=== PATIENT | female | born 1965 | race Caucasian/White ===

== ENCOUNTER 2021-02-14 13:48 | Emergency (ER) | payer SELFPAY ==
[2021-02-14] VITALS (8 sets, daily range): BP systolic 129–136; BP diastolic 89–111; PULSE 62–82; RESP 12–20; TEMP 36.6; O2SAT 96–99
--- NOTE | ~2021-02-14 | XR_ITS ---
EXAMINATION: XR chest 2V DATE: 02/14/2021 14:20 INDICATION: Chest and epigastric pain. TECHNIQUE: PA and lateral views of the chest were obtained. COMPARISON: None FINDINGS: Hyperexpansion of lungs with increased lucency and architectural distortion at the upper lung zones s uggestive of emphysema. Mild biapical pleural-parenchymal scarring. Additional mild opacities likely representing additional atelectasis/scarring along side a couple small calcified granulomata at the l eft costophrenic angle. No other airspace opacities, pulmonary edema, pleural effusion or pneumothora x. The cardiomediastinal silhouette is normal. Thoracic dextroscoliosis with mild spondylosis. Plate and screw fixation at an old proximal left humeral fracture. IMPRESSION: 1. Appearance suggestive but not diagnostic of emphysema. No acute cardiopulmonary disease. Reviewed, dictated and finalized at location A. IMPRESSION: 1. Appearance suggestive but not diagnostic of emphysema. No acute cardiopulmon nasim disease.
--- NOTE | 2021-02-14 13:53 | ECG_ITS ---
Measurements Intervals [place] Rate: 78 P: 69 AL: 144 QRS: 42 QRSD: 93 T: 66 QT: 361 QTc: 413 Interpretive Statements SINUS RHYTHM INCOMPLETE RIGHT BUNDLE BRANCH BLOCK BASELINE ARTIFACT- I, II, III, AVR, AVL BORDERLINE ECG Electronically Signed On 02-14-2021 14:09:18 CDT by Don Sewell D.O.
[2021-02-14 14:13] LABS: Basophils Absolute Auto 0.1 K/mm3 (0.0-0.1); Basophils Percent Auto 0.8 % (0.2-1.2); Eosinophils Absolute Auto 0.2 K/mm3 (0-0.3); Eosinophils Percent Auto 2.1 % (0-4.4); Hematocrit 39.1 % (37.0-47.0); Hemoglobin 12.9 g/dL (12.0-15.0); Immature Granulocyte Absolute 0.03 K/mm3 (0.00-0.031); Immature Granulocyte Percent A 0.4 % (0-0.5); Lymphocytes Absolute Auto 1.97 K/mm3 (0.9-3.2); Lymphocytes Percent Auto 27.2 % (18.3-44.2); Mean Corpuscular Hemoglobin 31.3 pg (26-34); Mean Corpuscular Volume 94.9 fl (80-100); Mean Platelet Volume 9.4 fl (7.4-10.4); Monocytes Absolute Auto 0.5 K/mm3 (0.1-0.6); Neutrophils Absolute Auto 4.5 K/mm3 (1.3-6.7); Neutrophils Percent Auto 62.5 % (45.5-73.1); Platelet Count Result 275 k/mm3 (150-375); Red Blood Count 4.12 M/mm3 (4.2-5.4); Red Cell Distribution Width 12.9 % (11.5-14.5); White Blood Count 7.3 K/mm3 (4.5-10.0)
[2021-02-14 14:24] LABS: INR 0.8; Prothrombin Time 12.1 Seconds (11.1-14.7)
[2021-02-14 14:25] LABS: Partial Thromboplastin Time 27.3 SECONDS (22.3-36.8)
[2021-02-14 14:25] LABS: Anion Gap 3 mmol/L (8-16); Blood Urea Nitrogen 7 mg/dL (7-17); Calcium 8.9 mg/dL (8.4-10.2); Carbon Dioxide 27 mmol/L (22-30); Chloride 104 mmol/L (98-107); Estimated CRCL calculation 52 ml/min; Estimated Glomerular Filt Rate > 60; Glucose 132 mg/dL (65-105); Potassium 4.1 mmol/L (3.4-5.0); Sodium 134 mmol/L (137-145)
[2021-02-14 14:37] LABS: Troponin I < 0.012 ng/mL (0.000-0.034)
--- NOTE | 2021-02-14 15:32 | ED.CHESTPAIN ---
HPI - Chest Pain General Chief Complaint: Chest Pain Stated Complaint: chest pain Time Seen by Provider: 02/14/21 15:18 Source: patient and family Mode of arrival: ambulatory Limitations: no limitations History of Present Illness HPI narrative: Patient is 55 years old white female presents to the ED with chest pain started 3 days ago, constant. Sharp, at the epigastric and right chest, better at rest, worsening with breathing, certain positions and when she laid down on the right side... Patient denies any fever, chills, nausea, vomiting, shortness of breath, coughing or similar symptoms. Patient had a lot of work at the [employer] 1 day prior to the beginning of her symptoms. Patient is a smoker, drinks alcohol daily, does not take medication at home. Patient denies any family history of coronary artery disease. Patient is 42 kg. Related Data Allergies Allergy/AdvReac Type Severity Reaction Status Date / Time No Known Allergies Allergy Unverified 07/26/14 11:26 Review of Systems Review of Systems: Narrative: CONSTITUTIONAL: Denies fever, chills, or sweats. EYES: Denies visual changes, redness, or discharge. ENT: Denies rhinorrhea, congestion, sore throat, or otalgia. CARDIOVASCULAR: Denies chest pain, palpitations, or edema. RESPIRATORY: Denies cough or dyspnea. GASTROINTESTINAL: Denies abdominal pain, nausea, vomiting, or diarrhea. GENITOURINARY: Denies dysuria or hematuria. SKIN: Denies rash or itching. MUSCULOSKELETAL: Denies back pain, joint pain, or myalgia. NEUROLOGIC: Denies headache, numbness, or weakness. PSYCHIATRIC: Denies anxiety or depression. Exam Narrative: Exam Narrative: General appearance: Well-developed, well-nourished Skin: Normal color Head: Normocephalic, nontraumatic Eyes: Clear conjunctiva ENT: Oropharynx normal, ears normal, nose normal Neck: Supple, nontender Chest and respiratory: Airway patent, no respiratory distress, no accessory muscle use Heart: Regular rate/rhythm Abdomen: Soft, nontender, no organomegaly, quiet bowel sounds Vascular: Normal peripheral pulses, normal capillary refill. 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 Musculoskeletal pain is my concern. Labs, chest x-ray, EKG ordered. Further plan to follow Differential Diagnosis Differential diagnosis: Likely pneumothorax, stable angina, atypical chest pain, costochondritis and chest pain Lab Data Result diagrams: 02/14/21 14:04 02/14/21 14:04 Labs: Lab Results 02/14/21 02/14/21 02/14/21 Range/Units 14:03 14:03 14:04 WBC 7.3 (4.5-10.0) K/mm3 RBC 4.12 L (4.2-5.4) M/mm3 Hgb 12.9 (12.0-15.0) g/dL Hct 39.1 (37.0-47.0) % MCV 94.9 (80-100) fl MCH 31.3 (26-34) pg MCHC 33.0 (32-36) g/dl RDW 12.9 (11.5-14.5) % Plt Count 275 (150-375) k/mm3 MPV 9.4 (7.4-10.4) fl Immature Gran % (Auto) 0.4 (0-0.5) % Neut % (Auto) 62.5 (45.5-73.1) % Lymph % (Auto) 2
[2021-02-14] MEDS: KETOROLAC (*BKC) 60 MG/2 ML VIAL IM (15:43)
[2021-02-14 15:50] LABS: Lipase 57 U/L (23-300)
[2021-02-14 17:08] LABS: Troponin I < 0.012 ng/mL (0.000-0.034)
== END 2021-02-14 16:51 | disposition home or self-care (01) ==
PROVIDERS: Emergency Medicine; Emergency Provider Emergency Medicine
DX: R07.89 Other chest pain (principal); I45.10 Unspecified right bundle-branch block; F17.200 Nicotine dependence, unspecified, uncomplicated
CPT/HCPCS: 36415; 71046; 80048; 83690; 84484; 85025; 85610; 85730; 93005; 96372; 99284; J1885

== ENCOUNTER 2021-02-15 16:06 | Inpatient (IN) | payer SELFPAY ==
[2021-02-15] VITALS (10 sets, daily range): BP systolic 167–184; BP diastolic 74–109; PULSE 64–86; RESP 15–20; TEMP 36.2–36.6; O2SAT 97–100; BMI 15.5
--- NOTE | ~2021-02-15 | CT_ITS ---
EXAMINATION: CT abdomen pelvis w con DATE: 02/15/2021 18:15 INDICATION: Right lower quadrant pain TECHNIQUE: Computed tomography (CT) of the abdomen and pelvis was performed with 100 cc Omnipaque 350 intravenous contrast. The dose-length product was 164.85 mGy-cm. Automated exposure control and iter ative reconstruction technique were employed. COMPARISON: None. FINDINGS: Lung bases are unremarkable. Heart size is normal. No significant vascular abnormality. The re is moderate ascites of the abdomen and pelvis. There is free intraperitoneal air in the upper abdo men. Nonobstructive bowel gas pattern. The liver, spleen, pancreas, adrenal glands and kidneys are un remarkable. Gallbladder is present. There is mild subcutaneous edema. Gallbladder is present. No lymp hadenopathy. The appendix is not well visualized to adequately assess for appendicitis. IMPRESSION: 1. Free intraperitoneal air with moderate ascites, suspicious for bowel perforation in the absence of known recent surgery. Recommend surgical consultation. Dr. Juan Manuel Bateman discussed with Dr. Ezio Arzola MD at 02/15/2021 18:23 CDT. Reviewed, dictated and finalized at location A. IMPRESSION: 1. Free intraperitoneal air with moderate ascites, suspicious for bowel perfora tion in the absence of known recent surgery. Recommend surgical consultation. Dr. Juan Manuel Bateman discussed with Dr. Ezio Arzola MD at 02/15/2021 18:23 CDT.
--- NOTE | ~2021-02-15 | XR_ITS ---
EXAMINATION: XR chest 1V portable DATE: 02/17/2021 05:58 INDICATION: Chest congestion. TECHNIQUE: A single frontal view of the chest was obtained. COMPARISON: Chest single view 02/14/2021, CT abdomen and pelvis 02/15/2021 FINDINGS: There is mild atelectasis at left lung base. No pleural effusion or pneumothorax. The heart size is normal. There is plate and screw fixation of left humerus. IMPRESSION: 1. Mild atelectasis at left lung base. Reviewed, dictated and finalized at location A.
[2021-02-15 16:55] LABS: Basophils Absolute Auto 0.1 K/mm3 (0.0-0.1); Basophils Percent Auto 0.6 % (0.2-1.2); Eosinophils Absolute Auto 0.1 K/mm3 (0-0.3); Hematocrit 44.4 % (37.0-47.0); Hemoglobin 14.7 g/dL (12.0-15.0); Immature Granulocyte Absolute 0.03 K/mm3 (0.00-0.031); Immature Granulocyte Percent A 0.4 % (0-0.5); Lymphocytes Absolute Auto 2.36 K/mm3 (0.9-3.2); Lymphocytes Percent Auto 30.1 % (18.3-44.2); Mean Corpuscular HGB Conc 33.1 g/dl (32-36); Mean Corpuscular Hemoglobin 31.5 pg (26-34); Mean Corpuscular Volume 95.3 fl (80-100); Mean Platelet Volume 9.3 fl (7.4-10.4); Monocytes Absolute Auto 0.5 K/mm3 (0.1-0.6); Neutrophils Absolute Auto 4.9 K/mm3 (1.3-6.7); Neutrophils Percent Auto 61.9 % (45.5-73.1); Platelet Count Result 336 k/mm3 (150-375); Red Blood Count 4.66 M/mm3 (4.2-5.4); Red Cell Distribution Width 12.8 % (11.5-14.5); White Blood Count 7.9 K/mm3 (4.5-10.0)
[2021-02-15 17:03] LABS: Alanine Aminotransferase 9 U/L (4-35); Albumin Level 4.4 g/dL (3.5-5.1); Alkaline Phosphatase 76 U/L (38-126); Anion Gap 7 mmol/L (8-16); Aspartate Amino Transferase 21 U/L (14-36); Bilirubin,Total 0.2 mg/dL (0.2-1.3); Blood Urea Nitrogen 8 mg/dL (7-17); Calcium 9.5 mg/dL (8.4-10.2); Carbon Dioxide 25 mmol/L (22-30); Chloride 103 mmol/L (98-107); Estimated CRCL calculation 48 ml/min; Estimated Glomerular Filt Rate > 60; Glucose 119 mg/dL (65-105); Lipase 200 U/L (23-300); Potassium 3.8 mmol/L (3.4-5.0); Sodium 135 mmol/L (137-145)
--- NOTE | 2021-02-15 17:40 | PC.NURSE ---
Attempt x2 for IV unsuccessful per this RN.
--- NOTE | 2021-02-15 17:47 | PC.NURSE ---
After IV start pt began having emesis of what appears to be mucus. Dr. Arzola made aware, orders received.
[2021-02-15] MEDS: SODIUM CHLORIDE 0.9% IV 1,000 ML 999 ML IV CONT (17:48)
[2021-02-15] MEDS: ONDANSETRON INJ 4 MG/2 ML VIAL IV PUSH ×2 (17:59→18:34)
--- NOTE | 2021-02-15 17:59 | PC.NURSE ---
Pt given zofran and then to CT via stretcher.
--- NOTE | 2021-02-15 18:01 | PC.NURSE ---
Report to DEBI Bailey, to continue care.
--- NOTE | 2021-02-15 18:26 | ED.ABDPAIN ---
HPI - Abdominal Pain General Chief Complaint: Abdominal Pain Stated Complaint: lower abd pain Time Seen by Provider: 02/15/21 16:49 Source: patient, family and RN notes reviewed Limitations: no limitations History of Present Illness HPI narrative: Patient is 55 years old white female presented to the ED with lower abdominal pain started 2 hours prior to arrival, gradually radiating all over the abdomen. Associated with nausea and vomiting at least twice. Patient denies any fever, chills, history of abdominal surgery, urinary symptoms, vaginal bleeding or discharge. Patient was seen in our emergency room yesterday for right chest pain started 3 days ago after working in her backyard. Patient was started on naproxen. Patient is a smoker and uses marijuana. Related Data Allergies Allergy/AdvReac Type Severity Reaction Status Date / Time No Known Allergies Allergy Unverified 07/26/14 11:26 Review of Systems Review of Systems: Narrative: CONSTITUTIONAL: Denies fever, chills, or sweats. EYES: Denies visual changes, redness, or discharge. ENT: Denies rhinorrhea, congestion, sore throat, or otalgia. CARDIOVASCULAR: Denies chest pain, palpitations, or edema. RESPIRATORY: Denies cough or dyspnea. GASTROINTESTINAL: Denies abdominal pain, nausea, vomiting, or diarrhea. GENITOURINARY: Denies dysuria or hematuria. SKIN: Denies rash or itching. MUSCULOSKELETAL: Denies back pain, joint pain, or myalgia. NEUROLOGIC: Denies headache, numbness, or weakness. PSYCHIATRIC: Denies anxiety or depression. Exam Narrative: Exam Narrative: General appearance: Underweight, cachectic, at the bedside Skin: Normal color Head: Normocephalic, nontraumatic Eyes: Clear conjunctiva ENT: Oropharynx normal, ears normal, nose normal Neck: Supple, nontender Chest and respiratory: Airway patent, no respiratory distress, no accessory muscle use Heart: Regular rate/rhythm Abdomen: Severe diffuse tenderness, severe guarding and rebound, distention, quiet bowel sounds Vascular: Normal peripheral pulses, normal capillary refill. Musculoskeletal: Normal range of motion, nontender back Neurologic: Alert and oriented ?3, CHANGE COORDINATOR is normal as tested, no gross motor deficit Course Course Emergency Course: Stable Consultations Consultation #1: Dr. Ayoub We will see her soon Date: 02/15/21 Time: 18:47 Vital Signs Vital signs: Vital Signs Temperature 36.6 C 02/15/21 16:41 Pulse Rate 71 02/15/21 16:41 Respiratory Rate 18 02/15/21 16:41 Blood Pressure 178/98 H 02/15/21 16:41 Pulse Oximetry 100 02/15/21 16:41 Temperature 36.6 C 02/15/21 16:41 Pulse Rate 71 02/15/21 16:41 Respiratory Rate 18 02/15/21 16:41 Blood Pressure 178/98 H 02/15/21 16:41 Pulse Oximetry 100 02/15/21 16:41 MDM - Abdominal Pain MDM Narrative Medical decision making narrative: Patient presents with sudden abdominal pain started 2 hours prior to arrival to the emergency room. Labs, IV fluid, CT abdomen pelvis with IV contrast ordered. Further plan to follow. My differential diagnosis as below Differential Diagnosis Differential diagnosis: Likely abdominal pain, acute appendicitis, constipation, diverticulitis and other (Perforated bowel, small bowel obstruction, urinary tract infection) Lab Data Result diagrams: 02/15/21 16:46 02/15/21 16:46 Labs: Lab Results 02/15/21 02/15/21 Range/Units 16:46 16:46 WBC 7.9 (4.5-10.0) K/mm3 RBC 4.66 (4.2-5.4) M/mm3 Hgb 14.7 (12.0-15.0) g/dL Hct 44.4 (37.0-47.0) % MCV 95.3 (80-100) fl MCH 31.5 (26-34) pg MCHC 33.1 (32-36) g/dl RDW 12.8 (11.5-14.5) % Plt Count 336 (150-375) k
[2021-02-15] MEDS: HYDROmorphone HCL INJ (*CRX) 1 MG/ML SYR 0.5 MG IV PUSH ×3 (18:34→21:35)
[2021-02-15] MEDS: SODIUM CHLORIDE 0.9% IV 1,000 ML 999 ML (18:42)
[2021-02-15 19:10] LABS: Add Urine Microscopic? NO; Appearance Urine Clear (Clear); Bilirubin Urine Negative (Negative); Blood Urine Negative (Negative); Color Urine Straw (Yellow); Glucose Urine UA Negative (Negative); Ketones Urine Negative (Negative); Leukocyte Esterase Ur Negative LEU/UL (Negative); Nitrate Urine Negative (Negative); Protein Urine Negative (Negative); Urobilinogen Urine Negative mg/dL (<2.0)
[2021-02-15 19:11] LABS: Specific Grav Ur 1.043 (1.001-1.035)
[2021-02-15] MEDS: ONDANSETRON INJ 4 MG/2 ML VIAL (19:13)
--- NOTE | 2021-02-15 19:14 | PC.NURSE ---
THIS RN ATTEMPTED NG 2X, NO SUCCESS.
--- NOTE | 2021-02-15 19:24 | PM.IMHP ---
H&P: HPI History of Present Illness Date/Time: 02/15/21 19:25 Chief Complaint: severe abdominal pain Narrative: patient is a 55-year-old woman who was the emergency room yesterday with complaints of right-sided chest pain. This pain came on after doing some yd work. She was given a script for naproxen. Today she comes back to the emergency room with severe abdominal pain mostly in the lower abdomen that started 2 hours prior to presentation. She has no history of previous abdominal surgery. In the ER she was noted to have a normal white count but her abdomen was diffusely tender with guarding throughout consistent with an acute abdomen. CT scan shows free intraperitoneal air with ascites very suggestive of bowel perforation. She has received IV fluid resuscitation, nasogastric tube is been placed, and IV antibiotics have been started. She is taken emergently now to the operating room for bowel perforation. Review of Systems Review of Systems: All systems reviewed & are unremarkable except as noted in HPI and below Constitutional: Constitutional: Denies headache(s) ENT: Denies headache(s) Cardiovascular: Cardiovascular: Denies claudication, Denies dyspnea and Denies dyspnea on exertion Respiratory: Respiratory: Denies cough and Denies dyspnea Gastrointestinal: Gastrointestinal: Reports as per HPI, Reports abdominal pain and Reports GI cramping Neurologic: Denies confusion and Denies headache(s) Psychiatric: Psychiatric: Denies confusion PMFSH Past Medical History Medical History Smoker Social History Social History Smoking status: Current every day smoker Substance use type: marijuana Meds Home Medications and Allergies Home Medications Medication Instructions Recorded Confirmed Type naproxen [Naprosyn] 500 mg PO BID PRN #10 tablet 02/14/21 Rx Allergies Allergy/AdvReac Type Severity Reaction Status Date / Time No Known Allergies Allergy Unverified 07/26/14 11:26 Vital Signs Vital Signs - 24 hr 02/15/21 16:41 Temperature 36.6 C Pulse Rate 71 Respiratory Rate 18 Blood Pressure 178/98 H Pulse Oximetry 100 Exam Const: General: cooperative, well developed, alert, awake, in distress and uncomfortable; No confusion Nutritional Appearance: thin and underweight Orientation/consciousness: patient oriented x3 and No confusion HENMT: Head: normocephalic, atraumatic, no contusions and no scalp lesions Ears: external ears normal General nose exam: Normal external nose present Face and sinus: face symmetric and dry mucous membranes Mouth: Yes Normal oral and palatal mucosa present and Yes tongue normal Throat: posterior oropharynx normal Eyes: Conjunctivae: conjunctivae normal Sclera: sclerae normal Pupils: Equal, round and reactive pupils present EOM: EOMs intact bilaterally Neck: Neck: normal visual inspection, no lymphadenopathy, trachea midline, supple, nontender and no JVD Thyroid: abnormal thyroid Resp: Effort & Inspection: normal respiratory effort Auscultation: clear to auscultation bilaterally Cardio: Rate: regular rate Rhythm: regular rhythm GI: Inspection: normal to inspection and non-distended GI Palp: Yes Tenderness to palpation present (GI) (diffusely), Yes Guarding due to palpation present (GI), Yes Rigid due to palpation, No Hepatomegaly present and No Splenomegaly present Auscultation: normal bowel sounds, absent bowel sounds and normoactive bowel sounds Skin: General skin exam: normal color, turgor normal and no erythema Lesions: no lesions Rashes: no rashes Trauma: no lacerations or abrasions Neuro: General: No confusion Cranial nerves: Yes Equal, round and reactive pupils present Motor exam (neuro): Motor abnormalities not present Extrem: General: no clubbing, cyanosis or edema and edema Psych: Affect: normal affect Thought process: Normal thought process present Insight: Good insight p
--- NOTE | 2021-02-15 19:36 | WPDHPUPDATE1 ---
History and Physical Update Update Date/Time: 02/15/21 19:36 History and Physical has been reviewed, including an updated exam of the patient. There are NO changes in the patient's condition. Risks, benefits, and alternatives have been discussed and questions answered. Patient agrees to proceed with procedure.
[2021-02-15] MEDS: LACTATED RINGERS 1,000 ML 30 ML IV CONT ×2 (19:40→21:14)
--- NOTE | 2021-02-15 20:01 | WPDANESEPPF ---
Anes - Initial Pre Proc Eval Procedure: Operation Date: 02/15/21 20:00 Proposed Procedures p Exploratory Laparotomy, Pos Bowel Resec - Ryan Ayoub MD Date/Time: 02/15/21 20:01 Surgeon: Ryan Ayoub MD Pre Op Diagnosis: lower abd pain Patient Data Age: 55 Gender: F Height: 5 ft 6 in Weight: 43.6 kg Last Vital Signs Temp 36.6 C 02/15/21 16:41 Pulse 70 02/15/21 19:26 Resp 19 02/15/21 19:26 BP 180/79 H 02/15/21 19:26 Pulse Ox 98 02/15/21 19:26 Allergies Allergy/AdvReac Type Severity Reaction Status Date / Time No Known Allergies Allergy Unverified 07/26/14 11:26 Home Medications Medication Instructions Recorded Confirmed Type naproxen [Naprosyn] 500 mg PO BID PRN #10 tablet 02/14/21 Rx Laboratory Tests 02/15/21 02/15/21 02/15/21 16:46 16:46 18:58 WBC 7.9 K/mm3 K/mm3 (4.5-10.0) RBC 4.66 M/mm3 M/mm3 (4.2-5.4) Hgb 14.7 g/dL g/dL (12.0-15.0) Hct 44.4 % % (37.0-47.0) MCV 95.3 fl fl (80-100) MCH 31.5 pg pg (26-34) MCHC 33.1 g/dl g/dl (32-36) RDW 12.8 % % (11.5-14.5) Plt Count 336 k/mm3 k/mm3 (150-375) MPV 9.3 fl fl (7.4-10.4) Immature Gran % (Auto) 0.4 % % (0-0.5) Neut % (Auto) 61.9 % % (45.5-73.1) Lymph % (Auto) 30.1 % % (18.3-44.2) [place] % (Auto) 6.0 % % (2.6-8.5) Eos % (Auto) 1.0 % % (0-4.4) Baso % (Auto) 0.6 % % (0.2-1.2) Lymph # (Auto) 2.36 K/mm3 K/mm3 (0.9-3.2) [place] # (Auto) 0.5 K/mm3 K/mm3 (0.1-0.6) Eos # (Auto) 0.1 K/mm3 K/mm3 (0-0.3) Baso # (Auto) 0.1 K/mm3 K/mm3 (0.0-0.1) Abs Immat Gran (auto) 0.03 K/mm3 K/mm3 (0.00-0.031) Absolute Neuts (auto) 4.9 K/mm3 K/mm3 (1.3-6.7) Absolute Nucleated RBC 0.0 K/mm3 K/mm3 (0.0-0.012) Nucleated RBC % 0.0 % % (0.0-0.2) Sodium 135 mmol/L L mmol/L (137-145) Potassium 3.8 mmol/L mmol/L (3.4-5.0) Chloride 103 mmol/L mmol/L (98-107) Carbon Dioxide 25 mmol/L mmol/L (22-30) Anion Gap 7 mmol/L L mmol/L (8-16) BUN 8 mg/dL mg/dL (7-17) Creatinine 0.80 mg/dL mg/dL (0.7-1.0) Estim Creat Clear Calc 48 ml/min ml/min Estimated GFR > 60 (59 - ) Glucose 119 mg/dL H mg/dL (65-105) Calcium 9.5 mg/dL mg/dL (8.4-10.2) Total Bilirubin 0.2 mg/dL mg/dL (0.2-1.3) AST 21 U/L U/L (14-36) ALT 9 U/L U/L (4-35) Alkaline Phosphatase 76 U/L U/L (38-126) Total Protein 8.0 g/dL g/dL (6.3-8.2) Albumin 4.4 g/dL g/dL (3.5-5.1) Lipase 200 U/L U/L (23-300) Urine Color Straw (Yellow) Urine Appearance Clear (Clear) Urine pH 6.0 (5.0-9.0) Ur Specific [place] 1.043 H (1.001-1.035) Urine Protein Negative mg/dL mg/dL (Negative) Urine Glucose (UA) Negative mg/dL mg/dL (Negative) Urine Ketones Negative mg/dL mg/dL (Negative) Ur Blood (Man) Negative (Negative) Urine Nitrate Negative (Negative) Urine Bilirubin Negative (Negative) Urine Urobilinogen Negative mg/dL mg/dL (<2.0) Leukocyte Esterase Rfl Negative JC/UL JC/UL (Negative) Patient hx anesthesia problems: none Family hx anesthesia problems: none PMFSH Past Medical History Medical History Smoker Social History Social History Smoking status: Current every day smoker Substance use type: marijuana Anes - Eval Final PreProcedure Day of Procedure 02/15/21 20:01 Patient weight: normal Heart: regular rate and rhythm Lungs: decreased breath sounds Airway: Mallampati scale class II Neurological: alert and or
--- NOTE | 2021-02-15 21:23 | PM.PROC ---
Procedure Note - Detailed Date of procedure: 02/15/21 Pre-op diagnosis: Bowel perforation, peritonitis Bowel perforation, peritonitis Post-op diagnosis: other (Perforated pre-pyloric ulcer) Procedure performed: Over-sewing gastric ulcer, omentoplasty Description of procedure: The patient was taken to surgery and induced into general anesthesia. The abdomen was prepped and draped. A midline incision was made just above and below the umbilicus. We dissected through the midline fascia and enter the peritoneal cavity. Bowel content that appeared to be upper intestinal was noted. I got a glimpse of the stomach and duodenum and it appeared this was the source of the perforation. I extended the incision towards the xiphoid. We then placed an Sina wound guard. I was able to expose the distal stomach and pylorus. There was an anterior perforation that was about 4 mm x 3 mm. This was exposed and then over sewed with Lembert suture of 3 0 silk. I then irrigated the abdomen thoroughly with 5 L of warm saline. This cleared out the abdominal content and bowel content nicely. The area was mostly clear by the time we were finished. I then brought up piece of omentum and used mattress sutures of 3 0 silk to attach it to the distal stomach and duodenum as an omentoplasty or omental patch. All looked good. I checked the NG tube in it was in good position in the stomach. We closed the abdomen with running strata fix for the fascia. The skin was loosely approximated with white monique. A bulky dressing and Medipore tape was placed. The patient was awakened and taken to recovery in good condition. Sponge and needle counts were correct x2. Anesthesia: GETA Surgeon: Ryan Ayoub MD Stemhole Borer: Mack PINO Estimated blood loss (mL): 10 Drains: Yes (NG tube, Zapata catheter) Packing: No Pathology: none sent Complications: None Condition: stable Disposition: PACU Findings: Perforated pre-pyloric ulcer
--- NOTE | 2021-02-15 22:34 | SUR.PHASEI ---
2215- pt received Dilaudid 0.5mg 3 x while in PACU. Each appears to have been charted under 2 different entries for PRN Dilaudid.
--- NOTE | 2021-02-15 22:49 | ADMGEN ---
This patient, Manisha Johnson, was admitted to 2 Medical Room 243-01 @2225 from OR. Patient/family oriented to hospital policies and general routines including ID bracelet, bed and alarms, visiting hours, pain management, procedures, bathroom and other care routines, personal items, smoking policy, room service/diet, and visiting hours. Information on how to activate the Rapid Response Team has been discussed. Patient/Family are encouraged to report perceived risks to care and to ask questions if they do not understand what they are told or what they should do.
[2021-02-15] MEDS: LACTATED RINGERS 1,000 ML 125 ML IV CONT (23:18)
[2021-02-16 00:15] VITALS: BP 166/80; PULSE 84; RESP 20; TEMP 36.5; O2SAT 97
--- NOTE | 2021-02-16 00:39 | PM.IMCN ---
Assessment and Plan Assessment and plan (1) Perforated gastric ulcer: Qualifiers: Gastric ulcer chronicity: unspecified ulcer chronicity Qualified Code(s): K25.5 - Chronic or unspecified gastric ulcer with perforation Code(s): K25.5 - Chronic or unspecified gastric ulcer with perforation Status: Acute Assessment and Plan: s/p surgical repair. Continue pain control and general surgery recommendations. (2) Hypertension: Qualifiers: Hypertension type: unspecified Qualified Code(s): I10 - Essential (primary) hypertension Code(s): I10 - Essential (primary) hypertension Status: Acute Assessment and Plan: Elevated blood pressure may be secondary to pain from surgery. P.r.n. IV hydralazine with parameters as ordered. Patient may need to be started on oral antihypertensives prior to discharge if she continues to have elevated blood pressures (3) Anxiety: Code(s): F41.9 - Anxiety disorder, unspecified Status: Acute Assessment and Plan: P.r.n. IV Ativan (4) Tobacco dependence: Code(s): F17.200 - Nicotine dependence, unspecified, uncomplicated Status: Chronic Assessment and Plan: I have counseled the patient on tobacco cessation for 4 minutes. She does desire nicotine patch tonight. Additional Plan Date of service was February 16, 2021 at approximately 12:10 a.m. HPI Data of Consult Consult date: 02/16/21 Requesting Physician: Ryan Ayoub MD Primary Care Provider: COMMISSIONING SPECIALIST PHYSICIAN Consult Narrative Narrative: Thank you for consulting us to see this 55-year-old female for medical management and who just underwent surgery for a gastric ulcer perforation earlier this evening. The patient mentions that she has had abdominal discomfort for the past few days which worsen severely today and parotid to the hospital for evaluation. The patient was actually seen in the emergency room yesterday and decided to come back today when her pain became worse. Associated symptoms included nausea and vomiting. The patient was found to have bowel perforation on CT scan in the emergency room and was emergently taken to the operating room and found to have a perforated gastric ulcer. On my encounter with the patient she complains of having epigastric discomfort around the site of her surgery. She tells me that she is not known to have any known medical condition although she feels that she likely suffers from anxiety and would like to establish care with a primary care provider. The patient is known to smoke about half a pack of cigarettes daily. She also admits to having other gastric ulcers when she was younger. Currently the patient denies any chest pain, fevers, chills, shortness of breath, cough, dysuria, hematuria, diarrhea, or rectal bleeding. Review of Systems Review of Systems: All systems reviewed & are unremarkable except as noted in HPI and below PMFSH Past Medical History Medical History Peptic ulcer disease Smoker Surgical History Surgical History H/O dilation and curettage Family History Family History Mother Lung cancer Grandparent Cerebrovascular accident Social History Social History Smoking packs per day: 1 Smoking cigarettes per day: 20.0 Years smoked: 30 Smoking pack-years: 30.00 Smoking status: Current every day smoker Alcohol intake: current Substance use: current Substance use type: marijuana Spiritual care concerns: No Meds Home Medications and Allergies Home Medications Medication Instructions Recorded Confirmed Type No Home Medications 02/15/21 02/15/21 History Allergies Allergy/AdvReac Type Severity Reaction Status Date / Time No Known Allergies Allergy Verified 02/15/21 22:55 Vital Signs Linsey
[2021-02-16] MEDS: MORPHINE SULFATE (*CRX) 4 MG/ML INJ 2 MG IV PUSH ×4 (01:09→11:05)
[2021-02-16] MEDS: LORazepam INJ (*CRX) 2 MG/ML VIAL 0.5 MG IV PUSH (01:09)
[2021-02-16 01:43] VITALS: BP 141/88; PULSE 89; RESP 18; TEMP 36.6; O2SAT 96
[2021-02-16 05:18] LABS: Hematocrit 42.2 % (37.0-47.0); Mean Corpuscular HGB Conc 33.2 g/dl (32-36); Mean Corpuscular Hemoglobin 31.2 pg (26-34); Mean Platelet Volume 9.7 fl (7.4-10.4); Platelet Count Result 270 k/mm3 (150-375); Red Blood Count 4.49 M/mm3 (4.2-5.4); Red Cell Distribution Width 12.8 % (11.5-14.5); White Blood Count 12.8 K/mm3 (4.5-10.0)
[2021-02-16 05:34] LABS: Anion Gap 5 mmol/L (8-16); Blood Urea Nitrogen 7 mg/dL (7-17); Calcium 8.2 mg/dL (8.4-10.2); Carbon Dioxide 24 mmol/L (22-30); Chloride 106 mmol/L (98-107); Estimated CRCL calculation 62 ml/min; Estimated Glomerular Filt Rate > 60; Glucose 131 mg/dL (65-105); Potassium 4.1 mmol/L (3.4-5.0); Sodium 135 mmol/L (137-145)
[2021-02-16] MEDS: NICOTINE (*PBKC) 14 MG PATCH 1 PATCH TRANSDERM (05:46)
[2021-02-16 06:00] VITALS: BP 160/82; PULSE 85; RESP 18; TEMP 36.6; O2SAT 97
[2021-02-16] MEDS: LACTATED RINGERS 1,000 ML 125 ML IV CONT ×2 (06:51→15:38)
--- NOTE | 2021-02-16 07:39 | WPDANESPN ---
Anes - Prog Note Post-Op Date/Time: 02/16/21 07:39 Cardiovascular status: normal Respiratory status: normal Airway patency: baseline Mental status: baseline Post-Op hydration status: normal Vital Signs: Last Vital Signs Temp 36.6 C 02/16/21 06:00 Pulse 85 02/16/21 06:00 Resp 18 02/16/21 06:00 BP 160/82 H 02/16/21 06:00 Pulse Ox 97 02/16/21 06:00 Pain Score (VAS): 2 I/O: Intake & Output 02/15/21 02/15/21 02/16/21 15:59 23:59 07:59 Intake Total 500 1000 Output Total 275 800 Balance 225 200 Laboratory Tests 02/16/21 04:50 02/16/21 04:50 02/15/21 02/15/21 02/15/21 16:46 16:46 18:58 WBC 7.9 RBC 4.66 Hgb 14.7 Hct 44.4 MCV 95.3 MCH 31.5 MCHC 33.1 RDW 12.8 Plt Count 336 MPV 9.3 Immature Gran % (Auto) 0.4 Neut % (Auto) 61.9 Lymph % (Auto) 30.1 [place] % (Auto) 6.0 Eos % (Auto) 1.0 Baso % (Auto) 0.6 Lymph # (Auto) 2.36 [place] # (Auto) 0.5 Eos # (Auto) 0.1 Baso # (Auto) 0.1 Abs Immat Gran (auto) 0.03 Absolute Neuts (auto) 4.9 Absolute Nucleated RBC 0.0 Nucleated RBC % 0.0 Sodium 135 L Potassium 3.8 Chloride 103 Carbon Dioxide 25 Anion Gap 7 L BUN 8 Creatinine 0.80 Estim Creat Clear Calc 48 Estimated GFR > 60 Glucose 119 H Calcium 9.5 Total Bilirubin 0.2 AST 21 ALT 9 Alkaline Phosphatase 76 Total Protein 8.0 Albumin 4.4 Lipase 200 Urine Color Straw Urine Appearance Clear Urine pH 6.0 Ur Specific [place] 1.043 H Urine Protein Negative Urine Glucose (UA) Negative Urine Ketones Negative Ur Blood (Man) Negative Urine Nitrate Negative Urine Bilirubin Negative Urine Urobilinogen Negative Leukocyte Esterase Rfl Negative Blood Type Antibody Screen 02/15/21 02/16/21 02/16/21 23:16 04:50 04:50 WBC 12.8 H RBC 4.49 Hgb 14.0 Hct 42.2 MCV 94.0 MCH 31.2 MCHC 33.2 RDW 12.8 Plt Count 270 MPV 9.7 Immature Gran % (Auto) Neut % (Auto) Lymph % (Auto) [place] % (Auto) Eos % (Auto) Baso % (Auto) Lymph # (Auto) [place] # (Auto) Eos # (Auto) Baso # (Auto) Abs Immat Gran (auto) Absolute Neuts (auto) Absolute Nucleated RBC Nucleated RBC % Sodium 135 L Potassium 4.1 Chloride 106 Carbon Dioxide 24 Anion Gap 5 L BUN 7 Creatinine 0.60 L Estim Creat Clear Calc 62 Estimated GFR > 60 Glucose 131 H Calcium 8.2 L Total Bilirubin AST ALT Alkaline Phosphatase Total Protein Albumin Lipase Urine Color Urine Appearance Urine pH Ur Specific [place] Urine Protein Urine Glucose (UA) Urine Ketones Ur Blood (Man) Urine Nitrate Urine Bilirubin Urine Urobilinogen Leukocyte Esterase Rfl Blood Type A Positive Antibody Screen Negative Post-procedural complaints: none Patient Feedback: Patient satisfied with anesthetic care.
[2021-02-16] MEDS: ENOXAPARIN 30 MG/0.3 ML SYRINGE SUB-Q ×2 (08:19→20:47)
[2021-02-16] MEDS: FAMOTIDINE 20 MG/2 ML VIAL IV PUSH ×2 (08:19→20:47)
[2021-02-16 09:26] VITALS: O2SAT 95
[2021-02-16] MEDS: KETOROLAC 30 MG/ML VIAL (*BKC) 15 MG IV PUSH (10:12)
--- NOTE | 2021-02-16 12:39 | PM.IMPN ---
Progress Note: A&P Assessment and Plan (1) Perforated gastric ulcer: Qualifiers: Gastric ulcer chronicity: unspecified ulcer chronicity Qualified Code(s): K25.5 - Chronic or unspecified gastric ulcer with perforation Code(s): K25.5 - Chronic or unspecified gastric ulcer with perforation Status: Acute Assessment and Plan: POD [address] Ayoub. Continue pain control, antibiotics, DVT ppx, diet per General Surgery recommendations Monitor for clinical improvement Monitor labs (2) Hypertension: Qualifiers: Hypertension type: unspecified Qualified Code(s): I10 - Essential (primary) hypertension Code(s): I10 - Essential (primary) hypertension Status: Acute Assessment and Plan: Elevated blood pressure likely secondary to pain from perforated ulcer and subsequent surgery P.r.n. IV hydralazine with parameters as ordered. Patient may need to be started on oral antihypertensives prior to discharge if she continues to have elevated blood pressures as pain resolves Monitor closely (3) Anxiety: Code(s): F41.9 - Anxiety disorder, unspecified Status: Acute Assessment and Plan: P.r.n. IV Ativan (4) Tobacco dependence: Code(s): F17.200 - Nicotine dependence, unspecified, uncomplicated Status: Chronic Assessment and Plan: Nicotine patch has been ordered She has already been counseled about smoking cessation Additional Plan Thank you for allowing the Hospitalist team to care for this patient during their stay. We will continue to follow with you. Please call with any questions Subjective Date/time seen: 02/16/21 12:39 This is a Hospitalist Consult Progress Note Interval history: Patient is a 55 yo F current smoker with history of peptic ulcer disease who is here for perforated gastric ulcer POD [address] Ayoub; Hospitalist service consulted for medical management of HTN. Patient states she overall feels better with abdominal pain more related to surgery yesterday. Notes coughing, hiccups, and deep inspiration exacerbates pain. Nausea waxes/wanes but no vomiting with NG tube in. She occasionally experiences chills. No other complaints at the moment. Denies dizziness, lightheadedness, cp/palpitations, sob/cough, issues with Zapata, calf pain/swelling. Review of Systems Review of Systems: All systems reviewed & are unremarkable except as noted in HPI and below Exam Narrative: Exam Narrative: General: Patient resting supine in bed with head raised in no acute distress but appears uncomfortable due to pain. HEENT: Normocephalic, EOMI, oral mucosa moist. NG tube appreciated; dark green/brown output Cardiovascular: Rate and rhythm are regular. No notable murmur, rub, or gallop. Respiratory: scattered rhonchi appreciated left > right. Non-labored breathing. Abdomen: generalized diffuse tender to slight palpation, rigidity, non-distended, minimal bowel sounds present. Extremities: Peripheral pulses intact. No edema. NTTP b/l calves Neuro: No focal neurological deficits. Speech is clear. Objective Data Vital Signs Vital Signs: Last Vital Signs Temp 97.8 F 02/16/21 06:00 Pulse 85 02/16/21 06:00 Resp 18 02/16/21 06:00 BP 160/82 H 02/16/21 06:00 Pulse Ox 95 02/16/21 09:26 Intake/Output Intake/Output: Intake & Output 02/13/21 02/14/21 02/15/21 02/16/21 23:59 23:59 23:59 23:59 Intake Total 500 1000 Output Total 275 800 Balance 225 200 Meds/Results Medications: Active Medications Generic Name Dose Route Start Last Admin Trade Name Freq PRN Reason Stop Dose Admin Enoxaparin Sodium 30 mg 02/16/21 09:00 02/16/21 08:19 Enoxaparin 30 Mg/0.3 Ml Syringe SUB-Q 30 mg Q12HR JOBY Administration Famotidine 20 mg 02/16/21
[2021-02-16] MEDS: MORPHINE SULFATE (*CRX) 4 MG/ML INJ (12:59)
--- NOTE | 2021-02-16 13:32 | PM.PNGS ---
Progress Note: A&P Assessment and Plan (1) Perforated gastric ulcer: Qualifiers: Gastric ulcer chronicity: unspecified ulcer chronicity Qualified Code(s): K25.5 - Chronic or unspecified gastric ulcer with perforation Code(s): K25.5 - Chronic or unspecified gastric ulcer with perforation Status: Acute Assessment and Plan: continue NG tube, NPO, IV Zosyn antibiotics, IV fluid and IV Pepcid. Increased pain medication as still having discomfort from peritonitis. Up walking up in chair. Recheck labs again tomorrow. (2) Hypertension: Qualifiers: Hypertension type: unspecified Qualified Code(s): I10 - Essential (primary) hypertension Code(s): I10 - Essential (primary) hypertension Status: Acute Assessment and Plan: Probably from present illness but hospitalist following and note appreciated (3) Tobacco dependence: Code(s): F17.200 - Nicotine dependence, unspecified, uncomplicated Status: Chronic Assessment and Plan: on nicotine patch. Advised of benefits of quitting smoking. Subjective Subjective Date/Time Seen: 02/16/21 13:32 Post Op day: 1 Patient reports: still having pain ( Pain medication not controlling very well. Could not sleep.), no flatus, no bowel movement and afebrile Review of Systems Review of Systems: All systems reviewed & are unremarkable except as noted in HPI and below Constitutional: Constitutional: Denies headache(s) Cardiovascular: Cardiovascular: Denies chest pain and Denies dyspnea Respiratory: Respiratory: Denies cough and Denies dyspnea Gastrointestinal: Gastrointestinal: Reports as per HPI, Reports abdominal pain, Denies heartburn, Denies diarrhea and Denies nausea Neurologic: Denies confusion and Denies headache(s) Exam Const: General: cooperative, no acute distress, alert, awake and uncomfortable; No confusion Nutritional Appearance: malnourished and thin Orientation/consciousness: patient oriented x3 and No confusion GI: Inspection: non-distended and incision ( Dressing dry and intact) GI Palp: Yes Soft to palpation, Yes Tenderness to palpation present (GI) ( very tender throughout), No Guarding due to palpation present (GI) and No Rebound tenderness present Auscultation: absent bowel sounds Neuro: General: patient oriented x3, no focal motor deficits and No confusion Extrem: General: no calf tenderness and no edema Psych: Affect: normal affect Insight: Good insight present (Psych) Judgement: Good judgement present (Psych) Objective Data Vital Signs Vital Signs: Vital Signs - 24 hr 02/15/21 16:41 02/15/21 18:30 02/15/21 19:26 Temperature 36.6 C Pulse Rate 71 75 70 Respiratory Rate 18 19 19 Blood Pressure 178/98 H 168/74 H 180/79 H Pulse Oximetry 100 99 98 02/15/21 21:14 02/15/21 21:30 02/15/21 21:44 Temperature 36.3 C L Pulse Rate 64 77 77 Respiratory Rate 16 16 15 Blood Pressure 169/109 H 178/98 H 184/97 H Pulse Oximetry 100 100 100 02/15/21 22:07 02/15/21 22:41 02/15/21 23:06 Temperature 36.2 C L 36.3 C L Pulse Rate 78 73 80 Respiratory Rate 17 16 20 Blood Pressure 167/97 H 174/82 H 182/78 H Pulse Oximetry 97 99 97 02/15/21 23:28 02/16/21 00:15 02/16/21 01:43 Temperature 36.4 C 36.5 C 36.6 C Pulse Rate 86 84 89 Respiratory Rate 18 20 18 Blood Pressure 184/86 H 166/80 H 141/88 H Pulse Oximetry 99 97 96 02/16/21 06:00 02/16/21 09:26 Temperature 36.6 C Pulse Rate 85 Respiratory Rate 18 Blood Pressure 160/82 H Pulse Oximetry 97 95 Intake/Output Intake/Output: Intake & Output 02/13/21 02/14/21 02/15/21 02/16/21 23:59 23:59 23:59 23:59 Intake Total 500 1000 Output Total 275 800 Balance 225 200 Meds/Results Medications: Active Medications Generic Name Dose Route Start Last Admin Trade Name Freq PRN Reason Stop Dose Admin Enoxaparin Sodium 30 mg 02/16/21 09:00 02/16/21 08:19 Enoxaparin 30 Mg/0.3 Ml Syringe SUB-Q
[2021-02-16 14:00] VITALS: BP 151/85; PULSE 74; RESP 14; TEMP 36.4; O2SAT 97
[2021-02-16] MEDS: MORPHINE SULFATE (*CRX) 4 MG/ML INJ IV PUSH ×3 (15:37→20:46)
[2021-02-16] MEDS: PHENOL/SOD PHENO SPRAY CHERRY (*BKC) 1 SPRAY MUCOUS MEM (20:58)
[2021-02-16 21:08] VITALS: BP 144/78; PULSE 77; RESP 18; TEMP 36.4; O2SAT 97
[2021-02-17] VITALS (14 sets, daily range): BP systolic 148–165; BP diastolic 70–96; PULSE 68–87; RESP 14–24; TEMP 36.3–36.8; O2SAT 87–98
[2021-02-17] MEDS: LACTATED RINGERS 1,000 ML 125 ML IV CONT (00:08)
[2021-02-17] MEDS: ONDANSETRON INJ 4 MG/2 ML VIAL IV PUSH ×2 (03:21→16:24)
[2021-02-17] MEDS: MORPHINE SULFATE (*CRX) 4 MG/ML INJ IV PUSH ×4 (03:21→19:59)
--- NOTE | 2021-02-17 03:27 | PM.EVENT ---
Event Note Event Note Event Note: [employer] Teacher Note Called to evaluate this patient secondary to increased work of breathing. On my arrival to bedside the patient has audible gurgling and has LR running at 125 cc/hr. She complains of feeling short of breath. Auscultation reveals coarse bilateral crackles diffusely. We will discontinue IV fluids, administer lasix IV now, check CXR this morning. Consider further lasix today as needed. PRN bronchodilators.
[2021-02-17] MEDS: FUROSEMIDE INJ 40 MG/4 ML VIAL IV PUSH (03:33)
[2021-02-17] MEDS: ALBUTEROL SULFATE NEB 2.5 MG/0.5 ML INH 5 MG INHALATION ×4 (04:09→20:48)
[2021-02-17 05:09] LABS: Hematocrit 39.5 % (37.0-47.0); Hemoglobin 13.4 g/dL (12.0-15.0); Mean Corpuscular HGB Conc 33.9 g/dl (32-36); Mean Corpuscular Hemoglobin 31.2 pg (26-34); Mean Corpuscular Volume 92.1 fl (80-100); Mean Platelet Volume 9.6 fl (7.4-10.4); Platelet Count Result 262 k/mm3 (150-375); Red Blood Count 4.29 M/mm3 (4.2-5.4); Red Cell Distribution Width 13.1 % (11.5-14.5); White Blood Count 10.4 K/mm3 (4.5-10.0)
[2021-02-17 05:33] LABS: Anion Gap 7 mmol/L (8-16); Blood Urea Nitrogen 11 mg/dL (7-17); Calcium 9.4 mg/dL (8.4-10.2); Carbon Dioxide 29 mmol/L (22-30); Chloride 101 mmol/L (98-107); Estimated CRCL calculation 48 ml/min; Estimated Glomerular Filt Rate > 60; Glucose 105 mg/dL (65-105); Magnesium 1.7 mg/dL (1.6-2.3); Potassium 3.6 mmol/L (3.4-5.0); Sodium 137 mmol/L (137-145)
[2021-02-17] MEDS: NICOTINE (*PBKC) 14 MG PATCH 1 PATCH TRANSDERM (08:48)
[2021-02-17] MEDS: FAMOTIDINE 20 MG/2 ML VIAL IV PUSH ×2 (08:48→22:19)
[2021-02-17] MEDS: ENOXAPARIN 30 MG/0.3 ML SYRINGE SUB-Q ×2 (08:48→22:20)
[2021-02-17] MEDS: PHENOL/SOD PHENO SPRAY CHERRY (*BKC) 1 SPRAY MUCOUS MEM ×2 (09:02→16:20)
--- NOTE | 2021-02-17 10:34 | PM.PNGS ---
Progress Note: A&P Assessment and Plan (1) Perforated gastric ulcer: Qualifiers: Gastric ulcer chronicity: unspecified ulcer chronicity Qualified Code(s): K25.5 - Chronic or unspecified gastric ulcer with perforation Code(s): K25.5 - Chronic or unspecified gastric ulcer with perforation Status: Acute Assessment and Plan: bowel function returning. Will restart IV fluids at a low rate. Continue NPO and NG tube. DC Zapata catheter. Up walking more. Doing well so far. (2) Tobacco dependence: Code(s): F17.200 - Nicotine dependence, unspecified, uncomplicated Status: Chronic Assessment and Plan: Has COPD as well. Subjective Subjective Date/Time Seen: 02/17/21 10:34 Post Op day: 2 Patient reports: feels better, pain is less, no flatus, no bowel movement, shortness of breath ( Developed shortness of breath last night due to pulmonary edema, hospitalist care appreciated), afebrile and other ( responded well to IV Lasix and stopping IV fluids. No shortness of breath this morning.) Exam Const: General: comfortable and no acute distress; No confusion Orientation/consciousness: patient oriented x3 and No confusion Resp: Effort & Inspection: normal respiratory effort, Actively coughing, no stridor and not tachypneic Auscultation: rhonchi ( Mostly on the right) right lower Cardio: Rate: regular rate Rhythm: regular rhythm GI: Inspection: non-distended and incision ( incision healing well) GI Palp: Yes Soft to palpation, Yes Tenderness to palpation present (GI), No Guarding due to palpation present (GI) and No Rebound tenderness present Auscultation: normal bowel sounds Neuro: General: patient oriented x3, no focal motor deficits and No confusion Extrem: General: no calf tenderness and no edema Psych: Affect: normal affect Insight: Good insight present (Psych) Judgement: Good judgement present (Psych) Objective Data Vital Signs Vital Signs: Vital Signs - 24 hr 02/16/21 14:00 02/16/21 21:08 02/17/21 03:23 Temperature 36.4 C 36.4 C L 36.5 C Pulse Rate 74 77 68 Respiratory Rate 14 18 24 H Blood Pressure 151/85 H 144/78 H 165/92 H Pulse Oximetry 97 97 93 02/17/21 04:09 02/17/21 04:27 02/17/21 04:29 Temperature Pulse Rate 76 78 78 Respiratory Rate 20 20 20 Blood Pressure Pulse Oximetry 87 L 93 02/17/21 05:51 02/17/21 07:59 02/17/21 08:05 Temperature 36.4 C L Pulse Rate 82 87 76 Respiratory Rate 20 20 20 Blood Pressure 149/70 H Pulse Oximetry 96 98 02/17/21 08:29 Temperature Pulse Rate Respiratory Rate Blood Pressure Pulse Oximetry 94 Intake/Output Intake/Output: Intake & Output 02/14/21 02/15/21 02/16/21 02/17/21 23:59 23:59 23:59 23:59 Intake Total 500 3100 100 Output Total 275 2500 4350 Balance 225 600 -4250 Meds/Results Medications: Active Medications Generic Name Dose Route Start Last Admin Trade Name Freq PRN Reason Stop Dose Admin Albuterol 5 mg 02/17/21 08:00 02/17/21 07:58 Albuterol Sulfate Neb 2.5 Mg/0.5 Ml Inh INHALATION 5 mg Q6HRT JOBY Administration Enoxaparin Sodium 30 mg 02/16/21 09:00 02/17/21 08:48 Enoxaparin 30 Mg/0.3 Ml Syringe SUB-Q 30 mg Q12HR JOBY Administration Famotidine 20 mg 02/16/21 09:00 02/17/21 08:48 Famotidine 20 Mg/2 Ml Vial IV PUSH 20 mg Q12HR JOBY Administration Hydralazine HCl 10 mg 02/16/21 00:35 Hydralazine Hcl 20 Mg/Ml Vial IV PUSH 02/18/21 07:00 Q8H PRN see comment Piperacillin/Tazobactam/Dextrose 3.375 gm in 50 mls @ 100 mls/hr 02/16/21 12:00 02/17/21 05:34 Zosyn 3.375 Gm/D5w 50ml Pm IVPB Infused Q6H JOBY Infusion Potassium Chloride/Dextrose/Sod Cl 1,000 mls @ 60 mls/hr 02/17/21 10:35 Kcl 40 Meq/D5ns IV CONT .[id number] JOBY Ketorolac Tromethamine 15 mg 02/15/21 22:10 02/16/21 10:12 Ketorolac 30 Mg/Ml Vial (*Bkc) IV PUSH 02/20/21 22:11 15 mg Q6H PRN Administration Pain Rated 1-3
[2021-02-17] MEDS: KCL 40 MEQ/D5/0.9% SOD CHL 1,000 ML 60 ML IV CONT (11:43)
--- NOTE | 2021-02-17 11:56 | PM.IMPN ---
Progress Note: A&P Assessment and Plan (1) Perforated gastric ulcer: Qualifiers: Gastric ulcer chronicity: unspecified ulcer chronicity Qualified Code(s): K25.5 - Chronic or unspecified gastric ulcer with perforation Code(s): K25.5 - Chronic or unspecified gastric ulcer with perforation Status: Acute Assessment and Plan: POD [address] Ayoub. Continue pain control, antibiotics, DVT ppx, diet per General Surgery recommendations Agree with light IV fluids while NPO Monitor for clinical improvement Monitor labs (2) Hypertension: Qualifiers: Hypertension type: unspecified Qualified Code(s): I10 - Essential (primary) hypertension Code(s): I10 - Essential (primary) hypertension Status: Acute Assessment and Plan: Elevated blood pressure likely secondary to pain from perforated ulcer and subsequent surgery P.r.n. IV hydralazine with parameters as ordered. Patient may need to be started on oral antihypertensives prior to discharge if she continues to have elevated blood pressures as pain resolves Monitor closely (3) Anxiety: Code(s): F41.9 - Anxiety disorder, unspecified Status: Acute Assessment and Plan: P.r.n. IV Ativan (4) Tobacco dependence: Code(s): F17.200 - Nicotine dependence, unspecified, uncomplicated Status: Chronic Assessment and Plan: Nicotine patch has been ordered She has already been counseled about smoking cessation Additional Plan Thank you for allowing the Hospitalist team to care for this patient during their stay. We will continue to follow with you. Please call with any questions Subjective Date/time seen: 02/17/21 11:56 This is a Hospitalist Consult Progress Note Interval history: Patient is a 55 yo F current smoker with history of peptic ulcer disease who is here for perforated gastric ulcer POD [address] Ayoub; Hospitalist service consulted for medical management of HTN. Patient states she overall feels better again today although notes a difficulty night last night. She was SOB with increased work of breathing; this improved after d/c of IV fluids and one time dose of IV lasix. No longer n/v. She occasionally experiences subjective fevers/chills. She is urinating fine since d/c of Z[place]. No other complaints at the moment. Denies dizziness, lightheadedness, cp/palpitations, sob/cough, dysuria, calf pain/swelling. Review of Systems Review of Systems: All systems reviewed & are unremarkable except as noted in HPI and below Exam Narrative: Exam Narrative: General: Patient resting supine in bed with head raised in no acute distress. Family in room at time of visit HEENT: Normocephalic, EOMI, oral mucosa moist. NG tube noted; dark green, bilious output Cardiovascular: Rate and rhythm are regular. No notable murmur, rub, or gallop. Respiratory: scattered rhonchi appreciated left > right. Non-labored breathing. On RA Abdomen: generalized diffuse tender to slight palpation, rigidity, non-distended, minimal bowel sounds present. Extremities: Peripheral pulses intact. No edema. NTTP b/l calves Neuro: No focal neurological deficits. Speech is clear. Objective Data Vital Signs Vital Signs: Last Vital Signs Temp 97.5 F L 02/17/21 05:51 Pulse 76 02/17/21 08:05 Resp 20 02/17/21 08:05 BP 149/70 H 02/17/21 05:51 Pulse Ox 94 02/17/21 08:29 Intake/Output Intake/Output: Intake & Output 02/14/21 02/15/21 02/16/21 02/17/21 23:59 23:59 23:59 23:59 Intake Total 500 3100 150 Output Total 275 2500 4350 Balance 225 600 -4200 Meds/Results Medications: Active Medications Generic Name Dose Route Start Last Admin Trade Name Freq PRN Reason Stop Dose Admin Albuterol 5 mg 02/17/21 08:00 02/17/21 07:58
[2021-02-18] VITALS (12 sets, daily range): BP systolic 150–166; BP diastolic 84–99; PULSE 73–80; RESP 16–18; TEMP 36.3–37.2; O2SAT 90–95; BMI 15.5
[2021-02-18] MEDS: ALBUTEROL SULFATE NEB 2.5 MG/0.5 ML INH 5 MG INHALATION ×4 (01:56→19:18)
[2021-02-18] MEDS: MORPHINE SULFATE (*CRX) 4 MG/ML INJ IV PUSH ×2 (02:20→14:06)
[2021-02-18] MEDS: KCL 40 MEQ/D5/0.9% SOD CHL 1,000 ML 60 ML IV CONT ×2 (05:12→23:00)
[2021-02-18 05:37] LABS: Hematocrit 36.4 % (37.0-47.0); Mean Corpuscular Hemoglobin 31.3 pg (26-34); Mean Corpuscular Volume 94.8 fl (80-100); Mean Platelet Volume 9.5 fl (7.4-10.4); Platelet Count Result 263 k/mm3 (150-375); Red Blood Count 3.84 M/mm3 (4.2-5.4); Red Cell Distribution Width 12.8 % (11.5-14.5); White Blood Count 10.2 K/mm3 (4.5-10.0)
[2021-02-18 05:52] LABS: Anion Gap 5 mmol/L (8-16); Blood Urea Nitrogen 9 mg/dL (7-17); Calcium 8.6 mg/dL (8.4-10.2); Carbon Dioxide 30 mmol/L (22-30); Chloride 102 mmol/L (98-107); Estimated CRCL calculation 54 ml/min; Estimated Glomerular Filt Rate > 60; Glucose 127 mg/dL (65-105); Magnesium 2.1 mg/dL (1.6-2.3); Potassium 3.9 mmol/L (3.4-5.0); Sodium 137 mmol/L (137-145)
[2021-02-18] MEDS: FAMOTIDINE 20 MG/2 ML VIAL IV PUSH ×2 (08:07→20:42)
[2021-02-18] MEDS: ENOXAPARIN 30 MG/0.3 ML SYRINGE SUB-Q ×2 (08:07→20:41)
[2021-02-18] MEDS: NICOTINE (*PBKC) 14 MG PATCH 1 PATCH TRANSDERM (08:07)
[2021-02-18] MEDS: MORPHINE SULFATE (*CRX) 2 MG/ML INJ IV PUSH (08:15)
[2021-02-18] MEDS: BUMETANIDE INJ 1 MG/4 ML VIAL IV PUSH (09:29)
--- NOTE | 2021-02-18 11:11 | PM.PNGS ---
Progress Note: A&P Assessment and Plan (1) Perforated gastric ulcer: Qualifiers: Gastric ulcer chronicity: unspecified ulcer chronicity Qualified Code(s): K25.5 - Chronic or unspecified gastric ulcer with perforation Code(s): K25.5 - Chronic or unspecified gastric ulcer with perforation Status: Acute Assessment and Plan: Await return of bowel function. Continue NG tube, NPO, and gentle IV fluids. Continue IV Zosyn. WBC 10,000 and remains afebrile. Pain well-controlled. Encouraged increased activity, walking the halls. Lung sounds are coarse on exam and she clinically appears to need more diuresis. Started on Bumex IV once daily. Repeat labs tomorrow. (2) Tobacco dependence: Code(s): F17.200 - Nicotine dependence, unspecified, uncomplicated Status: Chronic Additional Plan I have discussed the plan of care with Dr. Ayoub. Subjective Subjective Date/Time Seen: 02/18/21 11:11 Post Op day: 3 (Over-sewing gastric ulcer, omentoplasty) Patient reports: feels better, pain is less, voiding w/o difficulty, no flatus, no bowel movement and afebrile Interval history: Patient is feeling well today. Tolerating getting up to the commode and walking in the room. Reports slight nausea this morning and still feeling bloated. No flatus or BM. No other complaints at this time. NG with 700 cc output overnight. Review of Systems Review of Systems: All systems reviewed & are unremarkable except as noted in HPI and below Constitutional: Constitutional: Reports as per HPI, Reports no additional constitutional complaints, Denies chills and Denies fever(s) Cardiovascular: Cardiovascular: Reports no additional cardiovascular complaints, Denies chest pain, Denies leg edema and Denies dyspnea Respiratory: Respiratory: Reports no additional respiratory complaints, Denies cough and Denies dyspnea Gastrointestinal: Gastrointestinal: Reports as per HPI and Reports no additional gastrointestinal complaints Neurologic: Reports system reviewed and no additional complaints, except as documented and Denies focal weakness Exam Const: General: comfortable, no acute distress, alert and awake Nutritional Appearance: thin and underweight Orientation/consciousness: patient oriented x3 Resp: Effort & Inspection: normal respiratory effort Auscultation: crackles (coarse) bilateral and wheezes inspiratory wheezes Cardio: Rate: regular rate Rhythm: regular rhythm GI: Inspection: distended and incision (Upper midline incision clean and dry, monique intact) GI Palp: Yes Soft to palpation, Yes Tenderness to palpation present (GI) (diffuse and appropriate incisional), No Guarding due to palpation present (GI) and No Hernia present Auscultation: Hypoactive bowel sounds present (very hypoactive) Skin: General skin exam: normal color Neuro: General: moves all extremities and no focal motor deficits Extrem: General: no clubbing, cyanosis or edema and no calf tenderness Psych: Mental Status: mental status grossly normal Insight: Good insight present (Psych) Judgement: Good judgement present (Psych) Objective Data Vital Signs Vital Signs: Vital Signs - 24 hr 02/17/21 13:51 02/17/21 14:00 02/17/21 14:02 Temperature 98.3 F Pulse Rate 78 85 87 Respiratory Rate 20 14 20 Blood Pressure 148/96 H Pulse Oximetry 94 93 02/17/21 20:48 02/17/21 20:57 02/17/21 22:00 Temperature 97.4 F L Pulse Rate 76 79 81 Respiratory Rate 18 18 18 Blood Pressure 148/93 H Pulse Oximetry 92 96 02/18/21 01:56 02/18/21 02:05 02/18/21 06:00 Temperature 97.3 F L Pulse Rate 80 77 74 Respiratory Rate 16 16 16 Blood Pressure 166/84 H Pulse Oximetry 94 02/18/21 07:44 02/18/21 07:51 02/18/21 08:07 Temperature Pulse Rate 78 78 Respiratory Rate 16 16 16 Blood Pressure Pulse Oximetry 95 Intake/Output Intake/Output: Intake & Output 02/15/21 02/16/21 02/17/21 02/18/21 23:59 23:59 23:59 23:59 In
--- NOTE | 2021-02-18 12:12 | PCNSR ---
On 02/18/21, the student,Ju Banks, provided care and completed [facility] documentation on this patient. I have reviewed the student's documentation and agree with the findings.
[2021-02-18] MEDS: ONDANSETRON INJ 4 MG/2 ML VIAL IV PUSH (12:52)
--- NOTE | 2021-02-18 14:11 | PM.IMPN ---
Progress Note: A&P Assessment and Plan (1) Perforated gastric ulcer: Qualifiers: Gastric ulcer chronicity: unspecified ulcer chronicity Qualified Code(s): K25.5 - Chronic or unspecified gastric ulcer with perforation Code(s): K25.5 - Chronic or unspecified gastric ulcer with perforation Status: Acute Assessment and Plan: She underwent surgical repair per Dr. Ayoub on 02/15/2021. She tolerated the procedure well and pain is being controlled appropriately. Continue pain control, antibiotics, DVT ppx, diet per General Surgery recommendations Continue gentle IV fluids while NPO. Monitor volume status closely. Monitor for clinical improvement with serial exams. (2) Hypertension: Qualifiers: Hypertension type: unspecified Qualified Code(s): I10 - Essential (primary) hypertension Code(s): I10 - Essential (primary) hypertension Status: Acute Assessment and Plan: BP reviewed and is elevated above target, likely secondary to pain from perforated ulcer in subsequent procedure. Overall trend appears to be improving. Initial BP readings in the 170s-180s systolic. Now postop day 3, BP mostly in 140s to 160s systolic. P.r.n. IV hydralazine with parameters as ordered. Patient may need to be started on oral antihypertensives prior to discharge if she continues to have elevated blood pressures as pain resolves. For now, she is NPO and we will wait on initiating any medication at this time. Monitor blood pressure trends closely (3) Tobacco dependence: Code(s): F17.200 - Nicotine dependence, unspecified, uncomplicated Status: Chronic Assessment and Plan: She smokes 1 pack per day. Continue nicotine patch. Smoking cessation is imperative for the healing process. She has been counseled on smoking cessation and will continue to reinforce this. Subjective Date/time seen: 02/18/21 14:11 Interval history: Date of service: 02/18/2021 Manisha Johnson is a 55-year-old female with a history of peptic ulcer disease and tobacco abuse who is seen in follow-up for perforated gastric ulcer and is now s/p surgical repair by Dr. Ayoub. He is doing okay today. She is still having rather significant abdominal pain which she rates as 7/10 surrounding her incision. It is worse with movement. She also is quite nauseous and reports a small episode of emesis today that she described as a white phlegm. She is certain that this was not sputum production and rather was regurgitation. No flatus or bowel movement. She denies shortness of breath and his significantly improved compared to yesterday when she felt short of breath. She denies cough, chest pain, dizziness, lightheadedness. She has been able to ambulate without difficulty and feels steady on her feet. Denies any urinary symptoms. Denies fever or chills. Review of Systems Review of Systems: All systems reviewed & are unremarkable except as noted in HPI and below Exam Narrative: Exam Narrative: Ms. Johnson is a thin, frail 55-year-old female who is lying semi recumbent in bed. She appears comfortable and is in NARD. Neuro: awake, alert and oriented x4, speech clear, no focal neuro deficits noted HEENMT: normocephalic, atraumatic, EOMI, sclerae anicteric, moist oral mucosa, tongue midline, nares patent Neck: supple, no lymphadenopathy Respiratory: Coarse breath sounds bilaterally with inspiratory crackles, nonlabored breathing Cardio: regular rate, regular rhythm with S1-S2 Abdomen: mildly distended, midline incision covered with bandage which is c/d/i, hypoactive bowel sounds, soft, tender to palpation of midline, no rigidity or guarding Extremities: no edema, erythema, cyanosis, clubbing, or tenderness to palpation, DP pulses 2+ bilaterally Skin: no rashes or lesions, warm and dry Psych: appropriate mood and affect, judgment and insight intact Objective Data Vital Signs Vital Signs: Vital
[2021-02-18] MEDS: KETOROLAC 30 MG/ML VIAL (*BKC) 15 MG IV PUSH (20:35)
[2021-02-19] VITALS (13 sets, daily range): BP systolic 151–168; BP diastolic 95–96; PULSE 63–79; RESP 16; TEMP 36.5–37; O2SAT 91–94
[2021-02-19] MEDS: ALBUTEROL SULFATE NEB 2.5 MG/0.5 ML INH 5 MG INHALATION ×4 (01:22→21:03)
[2021-02-19] MEDS: MORPHINE SULFATE (*CRX) 4 MG/ML INJ IV PUSH (01:40)
[2021-02-19 05:33] LABS: Hemoglobin 12.2 g/dL (12.0-15.0); Mean Corpuscular Hemoglobin 31.1 pg (26-34); Mean Corpuscular Volume 94.4 fl (80-100); Mean Platelet Volume 9.6 fl (7.4-10.4); Platelet Count Result 263 k/mm3 (150-375); Red Blood Count 3.92 M/mm3 (4.2-5.4); Red Cell Distribution Width 12.6 % (11.5-14.5); White Blood Count 8.7 K/mm3 (4.5-10.0)
[2021-02-19 05:45] LABS: Anion Gap 3 mmol/L (8-16); Blood Urea Nitrogen 9 mg/dL (7-17); Calcium 8.9 mg/dL (8.4-10.2); Carbon Dioxide 26 mmol/L (22-30); Chloride 108 mmol/L (98-107); Estimated CRCL calculation 54 ml/min; Estimated Glomerular Filt Rate > 60; Glucose 108 mg/dL (65-105); Potassium 4.4 mmol/L (3.4-5.0); Sodium 137 mmol/L (137-145)
[2021-02-19] MEDS: FAMOTIDINE 20 MG/2 ML VIAL IV PUSH ×2 (09:08→20:08)
[2021-02-19] MEDS: ENOXAPARIN 30 MG/0.3 ML SYRINGE SUB-Q ×2 (09:08→20:11)
[2021-02-19] MEDS: BUMETANIDE INJ 1 MG/4 ML VIAL IV PUSH (09:09)
[2021-02-19] MEDS: NICOTINE (*PBKC) 14 MG PATCH 1 PATCH TRANSDERM (09:09)
--- NOTE | 2021-02-19 10:10 | PM.IMPN ---
Progress Note: A&P Assessment and Plan (1) Perforated gastric ulcer: Qualifiers: Gastric ulcer chronicity: unspecified ulcer chronicity Qualified Code(s): K25.5 - Chronic or unspecified gastric ulcer with perforation Code(s): K25.5 - Chronic or unspecified gastric ulcer with perforation Status: Acute Assessment and Plan: She underwent surgical repair per Dr. Ayoub on 02/15/2021. She tolerated the procedure well and pain is being controlled appropriately. Continue pain control, antibiotics, DVT ppx, diet per General Surgery recommendations NG tube decompression. Continue gentle IV fluids while NPO. Monitor volume status closely. Monitor for clinical improvement with serial exams. (2) Hypertension: Qualifiers: Hypertension type: unspecified Qualified Code(s): I10 - Essential (primary) hypertension Code(s): I10 - Essential (primary) hypertension Status: Acute Assessment and Plan: BP reviewed and is elevated above target, likely secondary to pain from perforated ulcer and subsequent procedure. Overall trend appears to be improving. Initial BP readings in the 170s-180s systolic. Now postop day 4, BP mostly in 140s to 150s systolic. P.r.n. IV hydralazine with parameters as ordered. Patient may need to be started on oral antihypertensives prior to discharge if she continues to have elevated blood pressures as pain resolves. For now, she is NPO and we will wait on initiating any medication at this time. Monitor blood pressure trends closely (3) Tobacco dependence: Code(s): F17.200 - Nicotine dependence, unspecified, uncomplicated Status: Chronic Assessment and Plan: She smokes 1 pack per day. Continue nicotine patch. Smoking cessation is imperative for the healing process. She has been counseled on smoking cessation for 7 minutes today and will continue to reinforce this. She plans to quit smoking. Subjective Date/time seen: 02/19/21 10:10 Interval history: Date of service: 02/19/2021 Manisha Johnson is a 55-year-old female with a history of peptic ulcer disease and tobacco abuse who is seen in follow-up for perforated gastric ulcer and is now s/p surgical repair by Dr. Ayoub. She feels better today. Her abdominal pain is currently 4/10. Her pain worsens with cough or deep inspiration. She reports occasional cough productive of clear-white sputum. She denies shortness of breath or wheezing. No chest pain or palpitations. She is urinating frequently following diuresis and feels that her breathing is better. She denies nausea or vomiting today. No passing of flatus and no bowel movements. She denies dizziness, lightheadedness, or weakness. No headaches or body aches. She has no other concerns. Denies cigarette craving, anxiety, irritability, restlessness. Review of Systems Review of Systems: All systems reviewed & are unremarkable except as noted in HPI and below Exam Narrative: Exam Narrative: Ms. Johnson is a thin, frail 55-year-old female who is sitting up at the bedside. She appears comfortable and is in NARD. Neuro: awake, alert and oriented x4, speech clear, no focal neuro deficits noted HEENMT: normocephalic, atraumatic, EOMI, sclerae anicteric, moist oral mucosa, tongue midline, NG tube secured to nare Neck: supple, no lymphadenopathy Respiratory: Coarse breath sounds bilaterally. No wheezes. Nonlabored breathing Cardio: regular rate, regular rhythm with S1-S2 Abdomen: mildly distended, midline incision covered with bandage which is c/d/i, hypoactive bowel sounds, soft, diffusely tender to palpation, no rigidity or guarding Extremities: no edema, erythema, cyanosis, clubbing, or tenderness to palpation, DP pulses 2+ bilaterally Skin: no rashes or lesions, warm and dry Psych: appropriate mood and affect, judgment and insight intact Objective Data Vital Signs Vital Signs: Vital Signs - 24 hr 02/18/21 13:5
--- NOTE | 2021-02-19 10:53 | PM.PNGS ---
Progress Note: A&P Assessment and Plan (1) Perforated gastric ulcer: Qualifiers: Gastric ulcer chronicity: unspecified ulcer chronicity Qualified Code(s): K25.5 - Chronic or unspecified gastric ulcer with perforation Code(s): K25.5 - Chronic or unspecified gastric ulcer with perforation Status: Acute Assessment and Plan: Await return of bowel function. Continue NG tube, NPO, and gentle IV fluids. Incision looks good and healing well. Continue IV Zosyn. White blood cell count normal and remains afebrile. Diuresing well. Continue daily IV Bumex. Repeat labs and abdominal exam tomorrow. (2) Tobacco dependence: Code(s): F17.200 - Nicotine dependence, unspecified, uncomplicated Status: Chronic Additional Plan I have discussed the plan of care with Dr. Ayoub. Subjective Subjective Date/Time Seen: 02/19/21 10:53 Post Op day: 4 (Over-sewing gastric ulcer, omentoplasty) Patient reports: no new complaints, pain is less, voiding w/o difficulty, no flatus, no bowel movement and afebrile Interval history: Patient with no new complaints this morning. No flatus or BM. No acute issues overnight. NG with 400 cc output documented overnight. Review of Systems Review of Systems: All systems reviewed & are unremarkable except as noted in HPI and below Constitutional: Constitutional: Denies chills, Denies fever(s) and Denies headache(s) Cardiovascular: Cardiovascular: Denies chest pain and Denies leg edema Respiratory: Respiratory: Denies dyspnea Gastrointestinal: Gastrointestinal: Denies nausea Exam Const: General: no acute distress, alert and awake Resp: Effort & Inspection: normal respiratory effort Auscultation: crackles (coarse) bilateral and wheezes inspiratory wheezes Cardio: Rate: regular rate Rhythm: regular rhythm GI: Inspection: distended and incision (Upper midline incision clean and dry, monique intact) GI Palp: Yes Soft to palpation, Yes Tenderness to palpation present (GI), No Guarding due to palpation present (GI) and No Rebound tenderness present Auscultation: Hypoactive bowel sounds present Skin: General skin exam: normal color Neuro: General: moves all extremities and no focal motor deficits Extrem: General: no calf tenderness and no edema Psych: Mental Status: mental status grossly normal Insight: Good insight present (Psych) Judgement: Good judgement present (Psych) Objective Data Vital Signs Vital Signs: Vital Signs - 24 hr 02/18/21 13:50 02/18/21 13:55 02/18/21 14:00 Temperature 99.0 F Pulse Rate 77 77 78 Respiratory Rate 16 16 18 Blood Pressure 150/99 H Pulse Oximetry 90 02/18/21 19:15 02/18/21 19:25 02/18/21 22:00 Temperature 98.0 F Pulse Rate 73 74 78 Respiratory Rate 16 16 16 Blood Pressure 151/93 H Pulse Oximetry 93 02/19/21 01:25 02/19/21 01:35 02/19/21 06:00 Temperature 98.6 F Pulse Rate 63 76 72 Respiratory Rate 16 16 16 Blood Pressure 156/95 H Pulse Oximetry 91 02/19/21 07:34 02/19/21 07:40 02/19/21 09:23 Temperature Pulse Rate 67 70 Respiratory Rate 16 16 16 Blood Pressure Pulse Oximetry 93 Intake/Output Intake/Output: Intake & Output 02/16/21 02/17/21 02/18/21 02/19/21 23:59 23:59 23:59 23:59 Intake Total 3100 200 2600 140 Output Total 2500 4750 3700 400 Balance 600 -4780 -1100 -260 Meds/Results Medications: Active Medications Generic Name Dose Route Start Last Admin Trade Name Robertq PRN Reason Stop Dose Admin Albuterol 5 mg 02/17/21 08:00 02/19/21 07:34 Albuterol Sulfate Neb 2.5 Mg/0.5 Ml Inh INHALATION 5 mg Q6HRT JOBY Administration Bumetanide 1 mg 02/18/21 09:00 02/19/21 09:09 Bumetanide Inj 1 Mg/4 Ml Vial IV PUSH 1 mg QAM JOBY Administration Enoxaparin Sodium 30 mg 02/16/21 09:00 02/19/21 09:08 Enoxaparin 30 Mg/0.3 Ml Syringe SUB-Q 30 mg Q12HR JOBY Administration Famotidine 20 mg 02/16/21 09:00 02/19/21 09:08 Famotidine
[2021-02-19] MEDS: KETOROLAC 30 MG/ML VIAL (*BKC) 15 MG IV PUSH (10:55)
[2021-02-19] MEDS: KCL 40 MEQ/D5/0.9% SOD CHL 1,000 ML 60 ML IV CONT (16:39)
[2021-02-19] MEDS: MORPHINE SULFATE (*CRX) 2 MG/ML INJ IV PUSH (20:05)
[2021-02-20] VITALS (13 sets, daily range): BP systolic 143–180; BP diastolic 78–100; PULSE 66–90; RESP 16–22; TEMP 37.1–37.6; O2SAT 94–97
[2021-02-20] MEDS: MORPHINE SULFATE (*CRX) 4 MG/ML INJ IV PUSH (00:25)
[2021-02-20] MEDS: ONDANSETRON INJ 4 MG/2 ML VIAL IV PUSH (00:30)
[2021-02-20] MEDS: ALBUTEROL SULFATE NEB 2.5 MG/0.5 ML INH 5 MG INHALATION ×4 (02:25→20:15)
[2021-02-20] MEDS: MORPHINE SULFATE (*CRX) 2 MG/ML INJ IV PUSH ×3 (05:13→15:14)
[2021-02-20 05:46] LABS: Hematocrit 34.2 % (37.0-47.0); Hemoglobin 11.3 g/dL (12.0-15.0); Mean Corpuscular Hemoglobin 30.2 pg (26-34); Mean Corpuscular Volume 91.4 fl (80-100); Mean Platelet Volume 9.3 fl (7.4-10.4); Platelet Count Result 307 k/mm3 (150-375); Red Blood Count 3.74 M/mm3 (4.2-5.4); Red Cell Distribution Width 12.6 % (11.5-14.5); White Blood Count 8.1 K/mm3 (4.5-10.0)
[2021-02-20 05:55] LABS: Anion Gap 8 mmol/L (8-16); Blood Urea Nitrogen 12 mg/dL (7-17); Carbon Dioxide 26 mmol/L (22-30); Chloride 107 mmol/L (98-107); Estimated CRCL calculation 54 ml/min; Estimated Glomerular Filt Rate > 60; Glucose 125 mg/dL (65-105); Magnesium 2.1 mg/dL (1.6-2.3); Sodium 141 mmol/L (137-145)
[2021-02-20] MEDS: hydrALAZINE HCL 20 MG/ML VIAL 10 MG IV PUSH (06:48)
--- NOTE | 2021-02-20 06:59 | PM.PNGS ---
Progress Note: A&P Assessment and Plan (1) Perforated gastric ulcer: Qualifiers: Gastric ulcer chronicity: unspecified ulcer chronicity Qualified Code(s): K25.5 - Chronic or unspecified gastric ulcer with perforation Code(s): K25.5 - Chronic or unspecified gastric ulcer with perforation Status: Acute Assessment and Plan: bowel function returning. Will DC NG tube and start full liquids. If tolerates, can advance to solid food tomorrow. Changed to p.o. Protonix which she will need to go home on and take for at least 6 weeks. Continue daily dry gauze dressing changes to abdominal wound. can finish out a week of IV antibiotics in the hospital then home on no oral antibiotics. Subjective Subjective Date/Time Seen: 02/20/21 06:59 Post Op day: 5 Patient reports: feels better, pain is less, flatus and bowel movement Review of Systems Review of Systems: All systems reviewed & are unremarkable except as noted in HPI and below Constitutional: Constitutional: Denies headache(s) Gastrointestinal: Gastrointestinal: Reports as per HPI Neurologic: Denies confusion and Denies headache(s) Exam Const: General: comfortable and no acute distress; No confusion Orientation/consciousness: patient oriented x3 and No confusion GI: Inspection: non-distended and incision ( continues to heal well) GI Palp: Yes Soft to palpation, Yes Tenderness to palpation present (GI) ( appropriate mild tenderness), No Guarding due to palpation present (GI) and No Rebound tenderness present Auscultation: normal bowel sounds Neuro: General: patient oriented x3, no focal motor deficits and No confusion Extrem: General: no calf tenderness and no edema Psych: Affect: normal affect Insight: Good insight present (Psych) Judgement: Good judgement present (Psych) Objective Data Vital Signs Vital Signs: Vital Signs - 24 hr 02/19/21 07:34 02/19/21 07:40 02/19/21 09:23 Temperature Pulse Rate 67 70 Respiratory Rate 16 16 16 Blood Pressure Pulse Oximetry 93 02/19/21 14:00 02/19/21 14:21 02/19/21 14:27 Temperature 36.8 C Pulse Rate 76 68 75 Respiratory Rate 16 16 16 Blood Pressure 168/96 H Pulse Oximetry 93 02/19/21 21:05 02/19/21 21:08 02/19/21 21:18 Temperature Pulse Rate 76 79 Respiratory Rate 16 16 Blood Pressure Pulse Oximetry 91 02/19/21 21:20 02/20/21 02:25 02/20/21 02:35 Temperature 36.5 C Pulse Rate 74 66 69 Respiratory Rate 16 16 16 Blood Pressure 151/96 H Pulse Oximetry 94 02/20/21 06:15 Temperature 37.1 C Pulse Rate 84 Respiratory Rate 16 Blood Pressure 180/100 H Pulse Oximetry 94 Intake/Output Intake/Output: Intake & Output 02/17/21 02/18/21 02/19/21 02/20/21 23:59 23:59 23:59 23:59 Intake Total 200 2600 1240 150 Output Total 4750 3700 1350 750 Banner -4550 -1100 -110 -600 Meds/Results Medications: Active Medications Generic Name Dose Route Start Last Admin Trade Name Freq PRN Reason Stop Dose Admin Albuterol 5 mg 02/17/21 08:00 02/20/21 02:25 Albuterol Sulfate Neb 2.5 Mg/0.5 Ml Inh INHALATION 5 mg Q6HRT JOBY Administration Enoxaparin Sodium 30 mg 02/16/21 09:00 02/19/21 20:11 Enoxaparin 30 Mg/0.3 Ml Syringe SUB-Q 30 mg Q12HR JOBY Administration Piperacillin/Tazobactam/Dextrose 3.375 gm in 50 mls @ 100 mls/hr 02/16/21 12:00 02/20/21 05:37 Zosyn 3.375 Gm/D5w 50ml Pm IVPB Infused Q6H JOBY Infusion Potassium Chloride/Dextrose/Sod Cl 1,000 mls @ 60 mls/hr 02/17/21 11:00 02/19/21 21:00 Kcl 40 Meq/D5ns IV CONT 60 mls/hr .[id number] JOBY Infusion Ketorolac Tromethamine 15 mg 02/15/21 22:10 02/19/21 10:55 Ketorolac 30 Mg/Ml Vial (*Bkc) IV PUSH 02/20/21 22:11 15 mg Q6H PRN Administration Pain Rated 1-3 Morphine Sulfate 2 mg 02/16/21 13:31 02/20/21 05:13 Morphine Sulfate (*Crx) 2 Mg/Ml Inj IV PUSH 2 mg Q2H PRN Administration Pain Rated 4-6 Morphine Sulfate 4 mg
[2021-02-20] MEDS: PANTOPRAZOLE 40 MG TABLET PO (09:04)
[2021-02-20] MEDS: NICOTINE (*PBKC) 14 MG PATCH 1 PATCH TRANSDERM (09:04)
[2021-02-20] MEDS: ENOXAPARIN 30 MG/0.3 ML SYRINGE SUB-Q ×2 (09:04→21:56)
--- NOTE | 2021-02-20 12:42 | PM.IMPN ---
Progress Note: A&P Assessment and Plan (1) Perforated gastric ulcer: Qualifiers: Gastric ulcer chronicity: unspecified ulcer chronicity Qualified Code(s): K25.5 - Chronic or unspecified gastric ulcer with perforation Code(s): K25.5 - Chronic or unspecified gastric ulcer with perforation Status: Acute Assessment and Plan: She underwent surgical repair per Dr. Ayoub on 02/15/2021. She tolerated the procedure well and pain is being controlled appropriately. She is tolerating her diet and passing flatus. Continue pain control, antibiotics, DVT ppx, diet per General Surgery recommendations Full liquid diet (2) Hypertension: Qualifiers: Hypertension type: unspecified Qualified Code(s): I10 - Essential (primary) hypertension Code(s): I10 - Essential (primary) hypertension Status: Acute Assessment and Plan: BP reviewed and is elevated above target, likely secondary to pain from perforated ulcer and subsequent procedure. Overall trend is improving. Initial BP readings in the 170s-180s systolic. Now postop day 5, BP mostly in 140s to 150s systolic. Last BP 145/78. P.r.n. IV hydralazine with parameters as ordered. Consider addition of antihypertensive agent. At this time, BP seems to be improving and anticipate further improvement following discontinuation of IV fluids. Monitor blood pressure trends closely (3) Tobacco dependence: Code(s): F17.200 - Nicotine dependence, unspecified, uncomplicated Status: Chronic Assessment and Plan: She smokes 1 pack per day. Continue nicotine patch. Smoking cessation is imperative for the healing process. She has been counseled on smoking cessation and will continue to reinforce this. She plans to quit smoking. Subjective Date/time seen: 02/20/21 12:42 Interval history: Date of service: 02/20/2021 Manisha Johnson is a 55-year-old female with a history of peptic ulcer disease and tobacco abuse who is seen in follow-up for perforated gastric ulcer and is now s/p surgical repair by Dr. Ayoub. She is feeling well today. She is tolerating full liquids without difficulty. She wasn't able to eat as much of her lunch as she was feeling a little bloated but denied nausea or vomiting. She is passing flatus but no BM yet. No shortness of breath, cough, chest pain, palpitations, dizziness, or lightheadedness. Review of Systems Review of Systems: All systems reviewed & are unremarkable except as noted in HPI and below Exam Narrative: Exam Narrative: Ms. Johnson is a thin, frail 55-year-old female who is sitting up at the bedside. She appears comfortable and is in NARD. Neuro: awake, alert and oriented x4, speech clear, no focal neuro deficits noted HEENMT: normocephalic, atraumatic, EOMI, sclerae anicteric, moist oral mucosa, tongue midline, NG tube secured to nare Neck: supple, no lymphadenopathy Respiratory: Faint post expiratory wheezes bilaterally. Nonlabored breathing Cardio: regular rate, regular rhythm with S1-S2 Abdomen: distended, midline incision covered with bandage which is c/d/i, normoactive bowel sounds, soft, minimally tender to palpation at midline, no rigidity or guarding Extremities: no edema, erythema, cyanosis, clubbing, or tenderness to palpation, DP pulses 2+ bilaterally Skin: no rashes or lesions, warm and dry Psych: appropriate mood and affect, judgment and insight intact Objective Data Vital Signs Vital Signs: Vital Signs - 24 hr 02/19/21 14:00 02/19/21 14:21 02/19/21 14:27 Temperature 98.2 F Pulse Rate 76 68 75 Respiratory Rate 16 16 16 Blood Pressure 168/96 H Pulse Oximetry 93 02/19/21 21:05 02/19/21 21:08 02/19/21 21:18 Temperature Pulse Rate 76 79 Respiratory Rate 16 16 Blood Pressure Pulse Oximetry 91 02/19/21 21:20 02/20/21 02:25 02/20/21 02:35 Temperature 97.7 F Pulse Rate 74 66 69 Respiratory Rate 16 16 16 Blood Pres
--- NOTE | 2021-02-20 13:46 | PC.NURSE ---
On 02/20/21, the student, [Sharona Jackson ], provided care and completed [facility] documentation on this patient. I have reviewed the student's documentation and agree with the findings.
[2021-02-20] MEDS: KETOROLAC 30 MG/ML VIAL (*BKC) 15 MG IV PUSH (19:59)
[2021-02-21] VITALS (10 sets, daily range): BP systolic 118–156; BP diastolic 75–81; PULSE 71–95; RESP 12–20; TEMP 36.4–37.1; O2SAT 95–99
[2021-02-21] MEDS: MORPHINE SULFATE (*CRX) 2 MG/ML INJ IV PUSH (00:36)
[2021-02-21] MEDS: ALBUTEROL SULFATE NEB 2.5 MG/0.5 ML INH 5 MG INHALATION ×4 (02:45→19:42)
[2021-02-21 05:31] LABS: Hematocrit 34.6 % (37.0-47.0); Hemoglobin 11.4 g/dL (12.0-15.0)
[2021-02-21 05:42] LABS: Anion Gap 6 mmol/L (8-16); Blood Urea Nitrogen 11 mg/dL (7-17); Calcium 8.7 mg/dL (8.4-10.2); Carbon Dioxide 26 mmol/L (22-30); Chloride 103 mmol/L (98-107); Estimated CRCL calculation 54 ml/min; Estimated Glomerular Filt Rate > 60; Glucose 91 mg/dL (65-105); Potassium 3.5 mmol/L (3.4-5.0); Sodium 135 mmol/L (137-145)
[2021-02-21] MEDS: MORPHINE SULFATE (*CRX) 4 MG/ML INJ IV PUSH (08:50)
[2021-02-21] MEDS: ENOXAPARIN 30 MG/0.3 ML SYRINGE SUB-Q ×2 (08:50→21:00)
[2021-02-21] MEDS: NICOTINE (*PBKC) 14 MG PATCH 1 PATCH TRANSDERM (08:50)
[2021-02-21] MEDS: PANTOPRAZOLE 40 MG TABLET PO (08:51)
--- NOTE | 2021-02-21 09:41 | PM.PNGS ---
Progress Note: A&P Assessment and Plan (1) Perforated gastric ulcer: Qualifiers: Gastric ulcer chronicity: unspecified ulcer chronicity Qualified Code(s): K25.5 - Chronic or unspecified gastric ulcer with perforation Code(s): K25.5 - Chronic or unspecified gastric ulcer with perforation Status: Acute Assessment and Plan: Tolerating full liquids and bowels continue to move. Pain well controlled. Incision looks good, continue gauze dressing changes. Will switch to oral analgesics for pain control. Advanced diet as tolerated to regular diet. Continue IV antibiotics for today. Patient could potentially discharge tomorrow if she continues to improve. Will need to continue Protonix for at least 6 weeks after discharge. Additional Plan I have discussed the plan of care with Dr. Ayoub. Subjective Subjective Date/Time Seen: 02/21/21 09:41 Post Op day: 6 (Over-sewing gastric ulcer, omentoplasty) Patient reports: no new complaints, feels better, tolerating liquids well, flatus and bowel movement Interval history: Patient doing well today. Reports tolerating full liquids. Had a bowel movement yesterday and this morning. No nausea or vomiting. Review of Systems Review of Systems: All systems reviewed & are unremarkable except as noted in HPI and below Cardiovascular: Cardiovascular: Reports no additional cardiovascular complaints and Denies chest pain Respiratory: Respiratory: Reports no additional respiratory complaints and Denies dyspnea Gastrointestinal: Gastrointestinal: Reports as per HPI and Reports no additional gastrointestinal complaints Exam Const: General: comfortable, no acute distress, alert and awake Orientation/consciousness: patient oriented x3 Resp: Effort & Inspection: normal respiratory effort Auscultation: rhonchi Cardio: Rate: regular rate Rhythm: regular rhythm GI: Inspection: non-distended and incision (Midline incision clean and dry) GI Palp: Yes Soft to palpation and Yes Tenderness to palpation present (GI) (incisional) Auscultation: normal bowel sounds Skin: General skin exam: normal color Neuro: General: moves all extremities and no focal motor deficits Extrem: General: no clubbing, cyanosis or edema and no calf tenderness Psych: Mental Status: mental status grossly normal Insight: Good insight present (Psych) Judgement: Good judgement present (Psych) Objective Data Vital Signs Vital Signs: Vital Signs - 24 hr 02/20/21 14:00 02/20/21 14:50 02/20/21 14:55 Temperature 99.6 F Pulse Rate 90 83 87 Respiratory Rate 16 18 18 Blood Pressure 143/86 H Pulse Oximetry 97 02/20/21 20:16 02/20/21 20:19 02/20/21 20:25 Temperature Pulse Rate 75 75 78 Respiratory Rate 18 18 Blood Pressure Pulse Oximetry 96 02/20/21 21:09 02/21/21 02:45 02/21/21 02:56 Temperature 99.1 F Pulse Rate 82 71 72 Respiratory Rate 16 18 18 Blood Pressure 163/86 H Pulse Oximetry 94 02/21/21 05:00 02/21/21 08:25 02/21/21 08:29 Temperature 97.9 F Pulse Rate 85 74 74 Respiratory Rate 18 18 Blood Pressure 156/79 H Pulse Oximetry 96 96 Intake/Output Intake/Output: Intake & Output 02/18/21 02/19/21 02/20/21 02/21/21 23:59 23:59 23:59 23:59 Intake Total 2600 1240 1520 490 Output Total 3700 1350 850 200 Balance -1100 -110 670 290 Meds/Results Medications: Active Medications Generic Name Dose Route Start Last Admin Trade Name Freq PRN Reason Stop Dose Admin Albuterol 5 mg 02/17/21 08:00 02/21/21 08:25 Albuterol Sulfate Neb 2.5 Mg/0.5 Ml Inh INHALATION 5 mg Q6HRT JOBY Administration Enoxaparin Sodium 30 mg 02/16/21 09:00 02/21/21 08:50 Enoxaparin 30 Mg/0.3 Ml Syringe SUB-Q 30 mg Q12HR JOBY Administration Hydralazine HCl 10 mg 02/20/21 07:15 Hydralazine Hcl 20 Mg/Ml Vial IV PUSH Q8H PRN SBP >170 Piperacillin/Tazobactam/Dextrose 3.375 gm in 50 mls @ 100 mls/hr 02/16/21 12:00 02/21/21 06:16
--- NOTE | 2021-02-21 10:23 | PM.IMPN ---
Progress Note: A&P Assessment and Plan (1) Perforated gastric ulcer: Qualifiers: Gastric ulcer chronicity: unspecified ulcer chronicity Qualified Code(s): K25.5 - Chronic or unspecified gastric ulcer with perforation Code(s): K25.5 - Chronic or unspecified gastric ulcer with perforation Status: Acute Assessment and Plan: She underwent surgical repair per Dr. Ayoub on 02/15/2021. She tolerated the procedure well and pain is being controlled appropriately. She is tolerating her diet. Bowel function has returned. Continue pain control, antibiotics, DVT ppx, diet per General Surgery recommendations Full liquid diet (2) Hypertension: Qualifiers: Hypertension type: unspecified Qualified Code(s): I10 - Essential (primary) hypertension Code(s): I10 - Essential (primary) hypertension Status: Acute Assessment and Plan: BP reviewed and is elevated above target, likely secondary to pain from perforated ulcer and subsequent procedure. Overall trend is improving. Initial BP readings in the 170s-180s systolic. Now postop day 6, BP mostly in 140s to 150s systolic. Last BP 156/79. Will initiate amlodipine as BP remaining elevated despite significant improvement in pain. Monitor blood pressure trends closely (3) Tobacco dependence: Code(s): F17.200 - Nicotine dependence, unspecified, uncomplicated Status: Chronic Assessment and Plan: She smokes 1 pack per day. Continue nicotine patch. Smoking cessation is imperative for the healing process. She has been counseled on smoking cessation and will continue to reinforce this. She plans to quit smoking. Subjective Date/time seen: 02/21/21 10:23 Interval history: Date of service: 02/20/2021 Manisha Johnson is a 55-year-old female with a history of peptic ulcer disease and tobacco abuse who is seen in follow-up for perforated gastric ulcer and is now s/p surgical repair by Dr. Ayoub. She is doing well today. She has not eaten breakfast yet but she was tolerating full liquids yesterday. She denies nausea or vomiting. She is passing flatus and did have a small bowel movement today. She states she was having some pain last night in which she had abdominal bloating and chills. This has resolved this morning. She denies some itching around her incision but otherwise her abdominal pain seems to have resolved. She has been up and walking with assistance and feels steady on her feet. She denies dizziness or lightheadedness. Denies shortness breath, cough, or chest pain. She has no additional concerns at this time. Review of Systems Review of Systems: All systems reviewed & are unremarkable except as noted in HPI and below Exam Narrative: Exam Narrative: Ms. Johnson is a thin, frail 55-year-old female who is sitting up at the bedside. She appears comfortable and is in NARD. Neuro: awake, alert and oriented x4, speech clear, no focal neuro deficits noted HEENMT: normocephalic, atraumatic, EOMI, sclerae anicteric, moist oral mucosa, tongue midline, NG tube secured to nare Neck: supple, no lymphadenopathy Respiratory: Clear to auscultation bilaterally. Nonlabored breathing Cardio: Regular rate, regular rhythm with S1-S2 Abdomen: distended, midline incision covered with bandage with scant sanguinous discharge on dressing, normoactive bowel sounds, soft, minimally tender to palpation at midline, no rigidity or guarding Extremities: no edema, erythema, cyanosis, clubbing, or tenderness to palpation, DP pulses 2+ bilaterally Skin: no rashes or lesions, warm and dry Psych: appropriate mood and affect, judgment and insight intact Objective Data Vital Signs Vital Signs: Vital Signs - 24 hr 02/20/21 14:00 02/20/21 14:50 02/20/21 14:55 Temperature 99.6 F Pulse Rate 90 83 87 Respiratory Rate 16 18 18 Blood Pressure 143/86 H Pulse Oximetry 97 02/20/21 20:16 02/20/21 20:19
--- NOTE | 2021-02-21 11:30 | PCNFU ---
Nutrition Follow-Up Complete: Altered gastrointestinal function related to perforated pre-pyloric ulcer as evidence by NPO. Goal: Meet estimated nutritional needs once PO is ordered. Patient has not met this goal. Working towards goal now that PO ordered. Pt current nutrition is Regular diet, Soft and Bite sized Level 6. Last recorded weight is 43.8 kg. Bowel Motility: Last BM 02/20 Labs Reviewed: Hgb 11.4, Hct 34.6, Na 135, K 3.5, BUN 11, Cr .70, Glu 91 Meds Noted: Hydrocodone PRN, Albuterol, Norvasc, Lovenox, Hydralazine Hcl Inj, Nicoderm, Zofran Inj PRN, Protonix, Phenol PRN, Piperacillin. Additional Notes: Patient reports being very hungry. Patient consumed 50% of clear liquids and switched to regular diet. Patient is in good spirits and is ready to eat. Follow up in 5 days.
--- NOTE | 2021-02-21 11:44 | PCNSR ---
On 02/21/21, the student,Ju Banks, provided care and [facility]. I have reviewed the student's documentation and agree with the findings.
[2021-02-21] MEDS: HYDROcodone/acetaminophen (*CRX) 5-325 MG TABLET 1 TAB PO ×2 (12:31→19:56)
[2021-02-21] MEDS: amLODIPine BESYLATE 5 MG TABLET PO (12:32)
[2021-02-22 01:00] VITALS: PULSE 75; RESP 16
[2021-02-22] MEDS: ALBUTEROL SULFATE NEB 2.5 MG/0.5 ML INH 5 MG INHALATION ×2 (01:00→08:43)
[2021-02-22 01:10] VITALS: PULSE 78; RESP 16
[2021-02-22] MEDS: HYDROcodone/acetaminophen (*CRX) 5-325 MG TABLET 1 TAB PO ×2 (03:56→08:09)
[2021-02-22 05:51] LABS: Anion Gap 5 mmol/L (8-16); Blood Urea Nitrogen 10 mg/dL (7-17); Calcium 8.7 mg/dL (8.4-10.2); Carbon Dioxide 26 mmol/L (22-30); Chloride 104 mmol/L (98-107); Estimated CRCL calculation 54 ml/min; Estimated Glomerular Filt Rate > 60; Glucose 94 mg/dL (65-105); Potassium 3.5 mmol/L (3.4-5.0); Sodium 135 mmol/L (137-145)
[2021-02-22 06:00] VITALS: BP 150/86; PULSE 82; RESP 20; TEMP 36.7; O2SAT 98
[2021-02-22] MEDS: ENOXAPARIN 30 MG/0.3 ML SYRINGE SUB-Q (08:10)
[2021-02-22] MEDS: NICOTINE (*PBKC) 14 MG PATCH 1 PATCH TRANSDERM (08:10)
[2021-02-22] MEDS: PANTOPRAZOLE 40 MG TABLET PO (08:10)
[2021-02-22 08:43] VITALS: PULSE 84; RESP 20; O2SAT 96
[2021-02-22] MEDS: amLODIPine BESYLATE 5 MG TABLET PO (09:46)
--- NOTE | 2021-02-22 10:05 | PM.DS ---
DS: Admitting Diagnosis Admitting Diagnosis Admitting Diagnosis: perforated gastric ulcer DS: Discharge Diagnosis Discharge Diagnosis (1) Perforated gastric ulcer: Qualifiers: Gastric ulcer chronicity: unspecified ulcer chronicity Qualified Code(s): K25.5 - Chronic or unspecified gastric ulcer with perforation Code(s): K25.5 - Chronic or unspecified gastric ulcer with perforation Status: Acute Assessment and Plan: s/p repair in OR, doing well, martin diet, +bowel fxn, will dc home c Protonix, po analgesia, colace, f/u 1 wk for staple removal DS: Summary Hospital Course Reason for hospitalization: perforated gastric ulcer Hospital Course: The patient presented to the hospital on 02/15 with perforated viscus. She was emergently taken to the operating room for exploratory laparotomy. During the procedure was found that she had a perforated gastric ulcer which was oversewn and omental patch was done, see full operative report for details of that procedure. Postoperatively, the patient did well and was transferred to the floor. Over the next few days, she did quite well and we awaited return of bowel function. During this time, the patient was NPO and had NG decompression. Patient did developed some pulmonary edema and Medicine was consulted. This improved with stopping her IVF and Lasix. On postoperative day 5, the patient had return of bowel function and we are able to remove the NG tube. The patient was started on a clear liquid diet which was subsequently advanced over the next few days. On today, the day of her anticipated discharge, she is tolerating a regular diet. The patient will be sent home with Protonix, po analgesia, and Colace. She will follow up with Dr. Ayoub in 1 week for staple removal. Status at Discharge Functional status at discharge: independent ambulation Overall status at discharge: patient is progressing back to baseline Time Spent with Patient Time attestation: Total time spent providing and/or coordinating discharge services: Time spent: Less than 30 minutes Exam Const: General: cooperative, comfortable and no acute distress Nutritional Appearance: average body habitus Orientation/consciousness: patient oriented x3 Limitations: no limitations Resp: Effort & Inspection: normal respiratory effort Auscultation: clear to auscultation bilaterally Cardio: Jugular venous distension: no JVD Rate: regular rate Rhythm: regular rhythm GI: Inspection: normal to inspection, non-distended and incision GI Palp: Yes Soft to palpation, Yes Tenderness to palpation present (GI) and No Guarding due to palpation present (GI) Other: soft, sl dist, marko TTP, incision C/D/I DS: Data Data Completed and Pending Labs on day of discharge: Labs from last 24 hours 02/22/21 05:11 Sodium 135 L Potassium 3.5 Chloride 104 Carbon Dioxide 26 Anion Gap 5 L BUN 10 Creatinine 0.70 Estim Creat Clear Calc 54 Estimated GFR > 60 Glucose 94 Calcium 8.7 Discharge Plan Discharge Attending physician on discharge: Ryan Ayoub Consulting providers: Susie Polanco Discharging Clinician: Rianna Gilbert Anticipated Discharge Date/Time: 02/22/21 09:58 Patient Disposition: Home, Self-Care Activity: no shower Diet: as tolerated Wound Care Instructions: remove dressing to shower Patient Instructions: How to Stop Smoking (DC) Stand Alone Forms: General Discharge Instructions Follow-up/Referrals: Rianna Gilbert MD [Physician] - Ryan Ayoub MD [Physician] - 1 Week PHYSICIAN,[employer] [facility] [Primary Care Provider] - Discharge Medications: New hydrocodone-acetaminophen 5-325 mg tablet 1 tablet PO Q6H PRN (Reason: pain) Qty: 30 RF: 0 pantoprazole [Protonix] 40 mg tablet,delayed release (DR/EC) 40 mg PO QAM 42 Days Qty: 42 RF: 0 docusate sodium [Colace] 100 mg capsule 100 mg PO BID Qty: 30 RF: 0 Continued No Home Medications
--- NOTE | 2021-02-22 11:59 | PM.IMPN ---
Progress Note: A&P Assessment and Plan (1) Perforated gastric ulcer: Qualifiers: Gastric ulcer chronicity: unspecified ulcer chronicity Qualified Code(s): K25.5 - Chronic or unspecified gastric ulcer with perforation Code(s): K25.5 - Chronic or unspecified gastric ulcer with perforation Status: Acute Assessment and Plan: She underwent surgical repair per Dr. Ayoub on 02/15/2021. She tolerated the procedure well and pain is being controlled appropriately. She is tolerating her diet. Bowel function has returned. Discharge today per general surgery (2) Hypertension: Qualifiers: Hypertension type: unspecified Qualified Code(s): I10 - Essential (primary) hypertension Code(s): I10 - Essential (primary) hypertension Status: Acute Assessment and Plan: BP reviewed and was elevated above target. Initially elevated rather significantly, likely secondary to pain and subsequent procedure. BP trends improved mildly with pain control but remained persistently elevated. Because of this, she was initiated on amlodipine 5 mg daily. Her blood pressure did improve after starting this medication. She will continue daily and follow-up with PCP for blood pressure monitoring. (3) Tobacco dependence: Code(s): F17.200 - Nicotine dependence, unspecified, uncomplicated Status: Chronic Assessment and Plan: She smokes 1 pack per day. She has a nicotine patch during her stay. I educated her on smoking cessation for 10 minutes total. She is motivated to quit smoking at this time. Subjective Date/time seen: 02/22/21 11:59 Interval history: Date of service: 02/22/2021 Manisha Johnson is a 55-year-old female with a history of peptic ulcer disease and tobacco abuse who is seen in follow-up for perforated gastric ulcer and is now s/p surgical repair by Dr. Ayoub. She is going home today. Pain is well controlled. Review of Systems Review of Systems: All systems reviewed & are unremarkable except as noted in HPI and below Exam Narrative: Exam Narrative: Ms. Johnson is a thin, frail 55-year-old female who is sitting up at the bedside. She appears comfortable and is in NARD. Neuro: awake, alert and oriented x4, speech clear, no focal neuro deficits noted HEENMT: normocephalic, atraumatic, EOMI, sclerae anicteric, moist oral mucosa, tongue midline, NG tube secured to nare Neck: supple, no lymphadenopathy Respiratory: Clear to auscultation bilaterally. Nonlabored breathing Cardio: Regular rate, regular rhythm with S1-S2 Abdomen: distended, midline incision covered with bandage that is c/d/i, normoactive bowel sounds, soft, minimally tender to palpation at midline, no rigidity or guarding Extremities: no edema, erythema, cyanosis, clubbing, or tenderness to palpation, DP pulses 2+ bilaterally Skin: no rashes or lesions, warm and dry Psych: appropriate mood and affect, judgment and insight intact Objective Data Vital Signs Vital Signs: Vital Signs - 24 hr 02/21/21 13:14 02/21/21 14:00 02/21/21 19:45 Temperature 98.7 F Pulse Rate 76 95 79 Respiratory Rate 18 16 12 Blood Pressure 118/81 Pulse Oximetry 98 95 02/21/21 19:50 02/21/21 22:00 02/22/21 01:00 Temperature 97.6 F Pulse Rate 84 83 75 Respiratory Rate 12 20 16 Blood Pressure 139/75 Pulse Oximetry 99 02/22/21 01:10 02/22/21 06:00 02/22/21 08:43 Temperature 98.0 F Pulse Rate 78 82 84 Respiratory Rate 16 20 20 Blood Pressure 150/86 H Pulse Oximetry 98 96 Intake/Output Intake/Output: Intake & Output 02/19/21 02/20/21 02/21/21 02/22/21 23:59 23:59 23:59 23:59 Intake Total 1240 1520 1560 960 Output Total 4368 345 8679 800 Balance -110 670 560 160 Meds/Results Medications: Active Medications Generic Name Dose Route Start Last Admin Trade Name Freq PRN Reason Stop Dose Admin Hydrocodone Bitart/Acetaminophen 1 tab 02/21/21 09:40 02/22/21 08
== END 2021-02-22 12:27 | disposition home or self-care (01) | DRG 220 ==
LOC: ANHED 18:36 → ANHSURGERY 19:06 → ANH2MED 22:34
PROVIDERS: Physician Assistant; Admitting Provider Surgery; Emergency Provider Emergency Medicine; Visit Provider Surgery
PROC: 0DU607Z Supplement Stomach with Autologous Tissue Substitute, Open Approach (ICD-10-PCS; CPT 49000; principal; 2021-02-15 20:00)
DX: K25.5 Chronic or unspecified gastric ulcer with perforation (principal); K65.9 Peritonitis, unspecified; F17.200 Nicotine dependence, unspecified, uncomplicated; I10 Essential (primary) hypertension; F41.9 Anxiety disorder, unspecified
CPT/HCPCS: 36415; 71045; 74177; 80048; 80053; 81003; 83690; 83735; 85014; 85018; 85025; 85027; 86850; 86900; 86901; 94640; 94667; 96361; 96374; 96375; 96376; 99285; A9270; J0330; J0360; J0690; J1100; J1170; J1650; J1885; J1940; J2060; J2250; J2270; J2405; J2543; J2704; J3010; J3480; J7030; J7120; Q9967

== ENCOUNTER 2021-07-03 00:29 | Day surgery (SDC) | payer SELFPAY ==
[2021-06-25 09:37] VITALS: BMI 15.3
[2021-07-03 11:07] VITALS: BP 114/90; PULSE 93; RESP 20; TEMP 36.2; O2SAT 97; BMI 14.8
[2021-07-03] MEDS: LACTATED RINGERS 1,000 ML 150 ML IV CONT (11:15)
--- NOTE | 2021-07-03 11:46 | WPDANESEPPF ---
Anes - Initial Pre Proc Eval Procedure: Operation Date: 07/03/21 12:15 Proposed Procedures p Esophagogastroduodenoscopy & Screening Colonoscopy - Gurinder Goodman MD Date/Time: 07/03/21 11:46 Surgeon: Gurinder Goodman MD Pre Op Diagnosis: neoplasm screening, gastric ulcer Patient Data Age: 56 Gender: F Height: 1.68 m Weight: 41.5 kg Last Vital Signs Temp 36.2 C L 07/03/21 11:07 Pulse 93 07/03/21 11:07 Resp 20 07/03/21 11:07 BP 114/90 07/03/21 11:07 Pulse Ox 97 07/03/21 11:07 Allergies Allergy/AdvReac Type Severity Reaction Status Date / Time No Known Allergies Allergy Verified 07/03/21 11:06 Home Medications Medication Instructions Recorded Confirmed Type pantoprazole 40 mg tablet,delayed 40 mg PO DAILY #90 tablet 05/30/21 06/25/21 Rx release Patient hx anesthesia problems: none Family hx anesthesia problems: none PMFSH Past Medical History Medical History Peptic ulcer disease Smoker Surgical History Surgical History H/O dilation and curettage Perforated gastric ulcer Family History Family History Mother Lung cancer Grandparent Cerebrovascular accident Social History Social History Smoking packs per day: 0.5 Smoking cigarettes per day: 10.0 Years smoked: 40 Smoking pack-years: 20.00 Smoking status: Current every day smoker Tobacco type: cigarettes Alcohol intake: current Drinks per week: 1 Alcohol use details: wine Substance use: current Substance use type: marijuana Other substance usage details: daily Living arrangements: with family Spiritual care concerns: No Anes - Eval Final PreProcedure Day of Procedure 07/03/21 11:46 Patient weight: cachectic Heart: regular rate and rhythm Lungs: clear to auscultation and normal air movement Airway: Mallampati scale class II Neurological: alert and oriented Last oral intake: >/= 8 hours ASA classification: II Emergent: no Anesthetic plan: proceed Anesthesia type and monitoring: general GIVS and standard monitoring Informed Consent: The patient's anesthetic plan and its attendant risks and benefits were discussed with the patient/family/POA. Questions were solicited and answers provided to the satisfaction of the patient/family/POA.
--- NOTE | 2021-07-03 12:41 | WPDHPUPDATE1 ---
History and Physical Update Update Date/Time: 07/03/21 12:41 History and Physical has been reviewed, including an updated exam of the patient. There are NO changes in the patient's condition. Risks, benefits, and alternatives have been discussed and questions answered. Patient agrees to proceed with procedure.
[2021-07-03 13:15] VITALS: BP 145/99; PULSE 93; RESP 20; O2SAT 97
[2021-07-03 13:25] VITALS: BP 160/90; PULSE 73; RESP 20; O2SAT 93
[2021-07-03 13:35] VITALS: BP 165/93; PULSE 63; RESP 20; O2SAT 93
== END 2021-07-03 13:52 | disposition home or self-care (01) ==
PROVIDERS: PCP Surgery; Visit Provider Internal Medicine Gastroenterology
PROC: 0DJ08ZZ Inspection of Upper Intestinal Tract, Via Natural or Artificial Opening Endoscopic (ICD-10-PCS; CPT 43235; principal; 2021-07-03 12:15)
DX: Z09 Encounter for follow-up examination after completed treatment for conditions other than malignant neoplasm (principal); Z87.11 Personal history of peptic ulcer disease; K29.50 Unspecified chronic gastritis without bleeding; Z12.11 Encounter for screening for malignant neoplasm of colon; D12.0 Benign neoplasm of cecum; K63.5 Polyp of colon; F17.210 Nicotine dependence, cigarettes, uncomplicated; F12.90 Cannabis use, unspecified, uncomplicated; R64 Cachexia; Z68.1 Body mass index [BMI] 19.9 or less, adult
CPT/HCPCS: 43239; 45380; 45385; 88305; 88342; J2001; J2704; J7120

== ENCOUNTER 2022-07-14 10:55 | Emergency (ER) | payer SELFPAY ==
[2022-07-14] VITALS (7 sets, daily range): BP systolic 123–155; BP diastolic 78–110; PULSE 78–97; RESP 12–20; TEMP 36.2; O2SAT 94–100
--- NOTE | ~2022-07-14 | CT_ITS ---
EXAMINATION: CT abdomen pelvis w con DATE: 07/14/2022 12:42 INDICATION: Mid abdominal pain, nausea and vomiting for 2 weeks TECHNIQUE: Computed tomography (CT) of the abdomen and pelvis was performed with 100 CC Omnipaque 350 intravenous contrast. Automated exposure control and iterative reconstruction technique were employe d. Exam dose: 151.48 mGy-cm total exam DLP. COMPARISON: 02/15/2021 CT abdomen pelvis FINDINGS: There is minimal dependent bilateral lower lobe atelectasis, left greater than right. There is a calcified granuloma in the posterior left lung base. Normal heart size. No pericardial or pleural effusion. The liver, gallbladder, bile ducts, pancreas, pancreatic duct, spleen and adrenal glands are unremark able. No renal mass lesion or urinary tract calculus or hydroureteronephrosis is detected. The urinary blad fr[place] is unremarkable. There is atherosclerotic calcification of the abdominal aorta and iliac arteries. No abdominal aortic aneurysm. No intraperitoneal or retroperitoneal or pelvic mass lesion or adenopathy or ascites. The urinary bladder is unremarkable. Retroverted. The adnexal vessels prominent, left greater than right. Normal appendix. There is a prominent amount of fecal material within the colon. No bowel obstruction or intraperitoneal free air is detected. Grade 1 anterolisthesis at L5-S1. No suspicious osteolytic or osteoblastic lesions are noted. IMPRESSION: Normal appendix. Prominent amount fecal material in the colon No bowel obstruction or free air Reviewed, dictated and finalized at [facility]. Reviewed, dictated and finalized at [facility].
[2022-07-14 12:06] LABS: Basophils Absolute Auto 0.1 K/mm3 (0.0-0.1); Basophils Percent Auto 0.9 % (0.2-1.2); Eosinophils Absolute Auto 0.2 K/mm3 (0-0.3); Eosinophils Percent Auto 2.2 % (0-4.4); Hematocrit 38.4 % (37.0-47.0); Hemoglobin 12.2 g/dL (12.0-15.0); Immature Granulocyte Absolute 0.02 K/mm3 (0.00-0.031); Immature Granulocyte Percent A 0.3 % (0-0.5); Lymphocytes Absolute Auto 1.95 K/mm3 (0.9-3.2); Lymphocytes Percent Auto 24.7 % (18.3-44.2); Mean Corpuscular HGB Conc 31.8 g/dl (32-36); Mean Corpuscular Hemoglobin 29.8 pg (26-34); Mean Corpuscular Volume 93.7 fl (80-100); Mean Platelet Volume 9.7 fl (7.4-10.4); Monocytes Absolute Auto 0.5 K/mm3 (0.1-0.6); Monocytes Percent Auto 6.2 % (2.6-8.5); Neutrophils Absolute Auto 5.2 K/mm3 (1.3-6.7); Neutrophils Percent Auto 65.7 % (45.5-73.1); Platelet Count Result 261 k/mm3 (150-375); Red Cell Distribution Width 12.7 % (11.5-14.5); White Blood Count 7.9 K/mm3 (4.5-10.0)
[2022-07-14] MEDS: SODIUM CHLORIDE 0.9% IV 1,000 ML 999 ML IV CONT (12:16)
[2022-07-14] MEDS: MORPHINE SULFATE (*CRX) 4 MG/ML INJ IV PUSH (12:17)
[2022-07-14] MEDS: ONDANSETRON INJ 4 MG/2 ML VIAL IV PUSH (12:17)
[2022-07-14 12:21] LABS: Alanine Aminotransferase 16 U/L (6-35); Albumin Level 4.4 g/dL (3.5-5.1); Alkaline Phosphatase 61 U/L (38-126); Anion Gap 9 mmol/L (8-16); Aspartate Amino Transferase 22 U/L (14-36); Bilirubin,Total 0.3 mg/dL (0.2-1.3); Blood Urea Nitrogen 19 mg/dL (7-17); Calcium 9.1 mg/dL (8.4-10.2); Carbon Dioxide 28 mmol/L (22-30); Chloride 98 mmol/L (98-107); Estimated CRCL calculation 59 ml/min; Estimated Glomerular Filt Rate > 60; Glucose 129 mg/dL (65-110); Lipase 44 U/L (23-300); Potassium 3.8 mmol/L (3.4-5.0); Sodium 135 mmol/L (137-145)
--- NOTE | 2022-07-14 12:23 | ED.ABDPAIN ---
HPI - Abdominal Pain General Chief Complaint: Abdominal Pain Stated Complaint: abd pain Time Seen by Provider: 07/14/22 12:00 Source: RN notes reviewed History of Present Illness HPI narrative: Patient presents emergency room from home for abdominal pain. Patient states for the past 2 weeks has been having increasing pain in the mid upper abdomen. The pain is described as sharp and stabbing in nature and is intermittent states has been associate with nausea and vomiting. Patient denies any fevers or chills chest pain shortness of breath diarrhea or any other symptoms. States she does have a history of a perforated ulcer that required surgery approximately a year ago Related Data Allergies Allergy/AdvReac Type Severity Reaction Status Date / Time No Known Allergies Allergy Verified 07/03/21 11:06 Review of Systems Review of Systems: Gen.: Denies fevers or chills ENT: Denies congestion Respiratory: Denies shortness of breath or cough CV: Denies chest pain or palpitations GI: See HPI denies burning, urgency, frequency or hematuria Musculoskeletal: Denies back pain or muscle pain Neuro: Denies numbness, tingling, weakness or focal weakness Skin: Denies rash Except as documented, all other systems reviewed and negative [facility] Past Medical History Medical History Peptic ulcer disease Smoker Surgical History Surgical History H/O dilation and curettage Perforated gastric ulcer Family History Family History Mother Lung cancer Grandparent Cerebrovascular accident Social History Social History Smoking packs per day: 0.5 Smoking cigarettes per day: 10.0 Years smoked: 40 Smoking pack-years: 20.00 Smoking status: Current every day smoker Tobacco type: cigarettes Alcohol intake: current Drinks per week: 1 Alcohol use details: wine Substance use: current Substance use type: marijuana Other substance usage details: daily Spiritual care concerns: No Exam Narrative: APPEARANCE: No acute distress, nontoxic, resting in bed HEENT: Normocephalic, atraumatic, OMM RESPIRATORY: No respiratory distress, clear to auscultation bilaterally with no rhonchi wheezing or rales CARDIOVASCULAR: RRR s murmur ABDOMINAL: Soft nondistended tender palpation epigastric and right upper quadrant and left upper quadrant no tenderness in right lower quadrant left lower quadrant no rebound or guarding MUSCULOSKELETAl: Moves all extremities. No clubbing, cyanosis or edema. NEURO: Awake and alert. Following commands, speech normal, no focal deficits SKIN:: Warm, dry. Normal Color PSYCHIATRIC: Normal affect/mood Course Course Emergency Course: Patient states that they are feeling much better at this time. States abdominal pain has improved. Repeat abdominal exam shows the patient's abdomen to be soft with no surgical abdomen present. Discussed with patient results of workup and diagnosis. Discussed need for follow-up with primary care physician, reasons to return to the emergency department in proper use of medication. Patient understands and agrees to current treatment plan patient states she is on Protonix at home Vital Signs Vital signs: Vital Signs Temperature 97.1 F L 07/14/22 11:33 Pulse Rate 97 07/14/22 11:33 Respiratory Rate 20 07/14/22 11:33 Blood Pressure 150/100 H 07/14/22 11:33 Pulse Oximetry 100 07/14/22 11:33 Oxygen Delivery Room Air 07/14/22 11:33 Temperature 97.1 F L 07/14/22 11:33 Pulse Rate 92 07/14/22 12:19 Respiratory Rate 12 07/14/22 12:19 Blood Pressure 155/79 H 07/14/22 12:20 Pulse Oximetry 98 07/14/22 12:30 Oxygen Delivery Room Air 07/14/22 11:33 MDM - Abdominal Pain MDM Narrative Medical decision making narrative: Patient's abdomen is soft without significant pain or si
[2022-07-14 13:26] LABS: Appearance Urine Clear (Clear); Bilirubin Urine Negative (Negative); Blood Urine Negative (Negative); Color Urine Yellow (Yellow); Glucose Urine UA Negative (Negative); Ketones Urine Negative (Negative); Leukocyte Esterase Ur Trace LEU/UL (Negative); Nitrate Urine Negative (Negative); Protein Urine Negative (Negative); Urobilinogen Urine 0.2 mg/dL (<2.0)
[2022-07-14 13:27] LABS: Lactic Acid Reflex 0.9 mmol/L (0.7-2.0)
[2022-07-14 13:30] LABS: Add Urine Microscopic? YES
[2022-07-14 13:32] LABS: Pregnancy On Board Control Positive; Urine Pregnancy Test Negative
[2022-07-14 13:33] LABS: RBC Urine 0-2 /hpf (0-2); Squamous Epithelial Cell Urine Many /hpf (Few)
[2022-07-14] MEDS: NITROFURANTOIN MONOHYD MACROCR 100 MG CAP PO (13:52)
== END 2022-07-14 14:11 | disposition home or self-care (01) ==
PROVIDERS: Emergency Medicine; Emergency Provider Emergency Medicine; PCP Surgery
DX: N39.0 Urinary tract infection, site not specified (principal); Z87.11 Personal history of peptic ulcer disease; F17.210 Nicotine dependence, cigarettes, uncomplicated
CPT/HCPCS: 36415; 74177; 80053; 81001; 81025; 83605; 83690; 85025; 96361; 96374; 96375; 99284; A9270; J2270; J2405; J7030; Q9967

== ENCOUNTER 2025-02-05 19:24 | Emergency (ER) | payer SELFPAY ==
--- NOTE | ~2025-02-05 | XR_ITS ---
EXAM: XR elbow LT min 3V DATE: 02/05/2025 19:39 HISTORY: fall/elbow injury . COMPARISON: None available. FINDINGS: Osteopenia. Old distal left humeral fracture, status post screw and plate fixation, healed in deformity. Vertical lucency along the left epicondylar region, smooth margins with some evidence of osseous bridging, likely chronic. No hardware fracture. The long medial screw head projects beyond the medial cortex, probably a chronic finding. No acute fracture or dislocation. IMPRESSION: No acute osseous finding in the left elbow. No radiographic evidence of acute hardware-re lated complication. Reviewed, dictated and finalized at [facility]. IMPRESSION: No acute osseous finding in the left elbow. No radiographic evidenc e of acute hardware-related complication.
[2025-02-05 19:25] VITALS: BP 114/92; PULSE 93; RESP 19; TEMP 36.7; O2SAT 98
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
== END 2025-02-05 19:55 | disposition home or self-care (01) ==
PROVIDERS: Emergency Provider Nurse Practitioner Family
DX: S50.02XA Contusion of left elbow, initial encounter (principal); W01.0XXA Fall on same level from slipping, tripping and stumbling without subsequent striking against object, initial encounter; F17.210 Nicotine dependence, cigarettes, uncomplicated; Z87.11 Personal history of peptic ulcer disease
CPT/HCPCS: 73080; 99213; G0463